=== PATIENT | female | born 1960 | race Caucasian/White ===

== ENCOUNTER 2018-05-12 07:44 | Day surgery (SDC) | payer OTHER ==
[2018-05-05 10:59] VITALS: BMI 36.8
[~2018-05-12 07:44] MED LIST: LIDOCAINE 1% 20 ML VIAL (10MG/ML) FOR IV START INTRADERMA PRN; MIDAZOLAM (PF) 2 MG/2 ML VIAL IV PRN
[2018-05-12 08:09] VITALS: RESP 16; TEMP 99.1
[2018-05-12] MEDS: LACTATED RINGERS 1,000 ML IV SCH ×2 (08:17→08:41)
[2018-05-12] MEDS ORDERED: PROPOFOL 10 MG/ML 20 ML VIAL IV ONE (08:43)
[2018-05-12] MEDS ORDERED: LIDOCAINE 1% INJ 10MG/ML (20 ML MDV) ONE (08:43)
[2018-05-12 09:09] VITALS: PULSE 84
--- NOTE | 2018-05-12 09:12 | P.PCN ---
Date of Procedure: 05/12/18 Description of Procedure: BRIEF HISTORY: Patient is a 57-year-old, pleasant, female patient with a long-standing history of GERD on daily omeprazole therapy who presents for evaluation of epigastric abdominal pain. The patient reports almost daily epigastric pain, exacerbated by not eating or overeating. She does report Motrin use approximately 3 times per week. She has had episodes of vomiting with the pain. No past history of peptic ulcer disease. No signs or symptoms of GI bleeding. PROCEDURE PERFORMED: Esophagogastroduodenoscopy with biopsy. PREOPERATIVE DIAGNOSIS: Epigastric abdominal pain, GERD. ESTIMATED BLOOD LOSS: Minimal. IV sedation per anesthesia. PROCEDURE: After informed consent was obtained, the patient was brought into the endoscopy unit. IV sedation was administered by Anesthesia under continuous monitoring. Initially the Olympus GIF-190 video endoscope was inserted into the mouth. Esophagus intubated without any difficulty. It was gradually advanced into the stomach and duodenum and carefully examined. The bulb and the second part of the duodenum appeared normal. The scope at this time was withdrawn to the stomach, adequately insufflated with air, and upon careful examination, mucosa of the antrum, body, cardia and the fundus appeared grossly normal. Mild scattered erythema was noted in the antrum and body of the stomach with biopsies taken. A large hiatal hernia sac, from the GE junction at 33 cm to the diaphragmatic impingement at 39 cm was noted. 2 non bleeding superficial ulcerations in the hiatal hernia sac suggestive of Bucky's erosions were noted and biopsied. The GE junction was located at 33 cm from the incisors. The esophagus appeared normal. There were no erosions or ulcerations seen and the patient tolerated the procedure well. IMPRESSION: 1. Gastritis in the antrum and body, biopsied. 2. Superficial nonbleeding gastric ulcers in the hiatal hernia sac, biopsied. 3. Large hiatal hernia. RECOMMENDATIONS: The findings of this examination were discussed with the patient and her sister- in-law. Would recommend stopping NSAID use. Increase omeprazole therapy to twice daily. Avoid tobacco use. Await pathology from biopsies. Follow up with gastroenterology in one to 2 weeks.
[2018-05-12 09:25] VITALS: BP 112/79
== END 2018-05-12 09:48 | disposition home or self-care (01) ==
LOC: ORWHC2ENDO 07:44
PROVIDERS: ATTEND Internal Medicine
DX: K21.9 Gastro-esophageal reflux disease without esophagitis (principal); K29.50 Unspecified chronic gastritis without bleeding; K44.9 Diaphragmatic hernia without obstruction or gangrene; Z87.891 Personal history of nicotine dependence; Z79.1 Long term (current) use of non-steroidal anti-inflammatories (NSAID); Z79.52 Long term (current) use of systemic steroids; Z79.899 Other long term (current) drug therapy; Z88.2 Allergy status to sulfonamides
CPT/HCPCS: 88305; 43239; J2001; J2704

== ENCOUNTER → 2018-08-17 | Outpatient (CLI) | payer OTHER ==
--- NOTE | 2018-08-17 12:42 | CT ---
EXAMINATION TYPE: CT abdomen pelvis wo con DATE OF EXAM: 08/17/2018 HISTORY: Abdominal pain not further specified. CT DLP: 896.00 mGycm. Automated Exposure Control for Dose Reduction was Utilized. TECHNIQUE: CT scan of the abdomen and pelvis is performed without oral or IV contrast. COMPARISON: NONE FINDINGS: Within the limitations of a non-contrast study, the following observations are made. LUNG BASES: Dependent atelectasis in both bases is present. LIVER/GB: Cholecystectomy clips are noted. PANCREAS: No significant abnormality is seen. SPLEEN: No significant abnormality is seen. ADRENALS: No significant abnormality is seen. KIDNEYS: No renal calculi or hydronephrosis. BOWEL: Evaluation bowel is slightly suboptimal secondary to lack of enteric contrast. There is modera te to large size hiatal hernia with abnormal twisting of stomach and air debris level. No suspicious proximal dilatation of visualized esophagus is seen. Below diaphragm there is no suspicious small or large bowel dilatation. Normal-appearing appendix from base of cecum is identified. There are scatter ed colonic diverticula most prominent in the sigmoid colon. No CT evidence for acute diverticulitis. GENITAL ORGANS: Anteverted uterus is identified. Scattered pelvic phleboliths are seen. No suspicious adnexal lesions are identified. LYMPH NODES: No greater than 1cm abdominal or pelvic lymph nodes are appreciated. OSSEOUS STRUCTURES: Mild disc space narrowing L5-S1 level. OTHER: Mild calcified plaque of aorta extends into branch vessels. IMPRESSION: Moderate to large size fixed hiatal hernia with twisting is presumed chronic. No acute fi nding is seen to account for patient's symptoms of pain. No bowel obstruction is present.
== END ==
LOC: RADCTMAIN 11:25
PROVIDERS: ATTEND Family Medicine
DX: K44.9 Diaphragmatic hernia without obstruction or gangrene (principal)
CPT/HCPCS: 74176

== ENCOUNTER → 2018-11-21 | Outpatient (CLI) | payer OTHER ==
[2018-11-21 11:05] LABS: HCT 38.7 % (34.0-46.0); HGB 12.6 gm/dL (11.4-16.0); MCH 28.2 pg (25.0-35.0); MCHC 32.5 g/dL (31.0-37.0); MCV 86.8 fL (80.0-100.0); Platelet Count 332 k/uL (150-450); RBC 4.46 m/uL (3.80-5.40); WBC 8.9 k/uL (3.8-10.6)
[2018-11-21 11:22] LABS: INR 0.9 (<1.2); Partial Thromboplastin Time 24.2 sec (22.0-30.0); Prothrombin Time 9.7 sec (9.0-12.0)
[2018-11-21 16:08] LABS: African American GFR (CKD) 92.9 (60.0-200.0); Albumin 4.4 g/dL (3.80-4.90); Albumin/Globulin Ratio 2.2 (1.60-3.17); Anion Gap 6.4 mmol/L (4.00-12.00); BUN/Creat Ratio 26.25 Ratio (12.00-20.00); Calcium 9.6 mg/dL (8.7-10.3); Carbon Dioxide 24.6 mmol/L (21.6-31.8); LDL Cholesterol,Calculated 76.2 mg/dL (0.0-131.0); Magnesium 1.6 mg/dL (1.5-2.4); Phosphorus 3.6 mg/dL (2.4-5.1); Potassium 4.2 mmol/L (3.5-5.5); Total Bilirubin 0.3 mg/dL (0.3-1.2); Total Protein 6.4 g/dL (6.2-8.2); VLDL Calculation 33.8 mg/dL (5.00-40.00)
[2018-11-21 16:10] LABS: Iron Saturation 23.46 (12.00-45.00)
[2018-11-21 16:18] LABS: Vitamin D 25 Hydroxy 57.9 ng/mL (30.0-100.0)
[2018-11-21 16:25] LABS: Folate, Serum 14.6 ng/mL
[2018-11-21 16:43] LABS: Parathyroid Hormone Intact 50.3 pg/mL (14.0-72.0)
[2018-11-21 18:38] LABS: Hemoglobin A1C 5.9 % (4.0-6.0)
[2018-11-22 11:00] LABS: Zinc, Serum 67 ug/dL (60-130)
[2018-11-23 07:28] LABS: Vitamin A 74 ug/dL (38-106)
[2018-11-23 07:32] LABS: Vit B1(Thiamine) 61 ug/L (38-122)
== END | disposition home or self-care (01) ==
LOC: LABWHC1 10:37
PROVIDERS: ATTEND Surgery Plastic and Reconstructive Surgery
DX: E66.01 Morbid (severe) obesity due to excess calories (principal); E21.1 Secondary hyperparathyroidism, not elsewhere classified; D50.8 Other iron deficiency anemias; K90.89 Other intestinal malabsorption; K74.1 Hepatic sclerosis; N19 Unspecified kidney failure; K50.90 Crohn's disease, unspecified, without complications; E55.9 Vitamin D deficiency, unspecified
CPT/HCPCS: 36415; 80053; 80061; 82306; 82525; 82607; 82728; 82746; 83036; 83540; 83550; 83735; 83970; 84100; 84134; 84255; 84425; 84443; 84590; 84630; 85027; 85610; 85730

== ENCOUNTER 2018-11-24 07:04 | Day surgery (SDC) | payer OTHER ==
[2018-11-22 10:46] VITALS: BMI 37.0
--- NOTE | 2018-11-23 22:39 | P.GSHP ---
History of Present Illness H&P Date: 11/24/18 CHIEF COMPLAINT: GERD HISTORY OF PRESENT ILLNESS: The patient is a 58-year-old female who presents reports gastroesophageal reflux disease. Upper endoscopy was offered for further evaluation and management. PAST MEDICAL HISTORY: Please see list. PAST SURGICAL HISTORY: Please see list. MEDICATIONS: Please see list. ALLERGIES: Please see list. SOCIAL HISTORY: No illicit drug use FAMILY HISTORY: No reports of Crohn disease or ulcerative colitis. REVIEW OF ORGAN SYSTEMS: CONSTITUTIONAL: No reports of fevers or chills. GI: Denies any blood in stools or constipation. PHYSICAL EXAM: VITAL SIGNS: Stable GENERAL: Well-developed and pleasant in no acute distress. HEENT: No scleral icterus. Extraocular movements grossly intact. Moist buccal mucosa. NECK: Supple without lymphadenopathy. CHEST: Unlabored respirations. Equal bilateral excursions. CARDIOVASCULAR: Regular rate and rhythm. Distal 2+ pulses. ABDOMEN: Soft, nondistended. MUSCULOSKELETAL: No clubbing, cyanosis, or edema. ASSESSMENT: 1. Gastroesophageal reflux disease PLAN: 1. 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 Hepatitis A 1979, had hx of gestational hypertension, ulcer, wears a pessary for urinary leakage, hx fragile X syndrome History of Any Multi-Drug Resistant Organisms: None Reported Past Surgical History: Cholecystectomy Additional Past Surgical History / Comment(s): EGD/colonoscopies Past Anesthesia/Blood Transfusion Reactions: No Reported Reaction Smoking Status: Former smoker - Past Family History Mother Family Medical History: Cancer Additional Family Medical History / Comment(s): breast Medications and Allergies Home Medications Medication Instructions Recorded Confirmed Type Omeprazole 40 mg PO BID 05/05/18 11/22/18 History Acetaminophen/Diphenhydramine 2 each PO DIRECTED PRN 11/22/18 11/22/18 History [Tylenol PM Extra Strength] Atorvastatin [Lipitor] 20 mg PO DAILY 11/22/18 11/22/18 History Allergies Allergy/AdvReac Type Severity Reaction Status Date / Time good Allergy Anaphylaxis Verified 11/22/18 10:32 sulfamethoxazole Allergy Rash/Hives Verified 11/22/18 10:32 [From Bactrim] trimethoprim [From Bactrim] Allergy Rash/Hives Verified 11/22/18 10:32
[~2018-11-24 07:04] MED LIST changes: +LACTATED RINGERS 1,000 ML IV SCH; -MIDAZOLAM (PF) 2 MG/2 ML VIAL IV PRN
[2018-11-24 07:22] VITALS: TEMP 97.2
[2018-11-24] MEDS ORDERED: GLYCOPYRROLATE 0.2 MG/ML 2 ML VIAL ONE (07:54)
[2018-11-24] MEDS ORDERED: LIDOCAINE 1% INJ 10MG/ML (20 ML MDV) ONE (07:54)
[2018-11-24] MEDS ORDERED: PROPOFOL 10 MG/ML 20 ML VIAL IV ONE (07:54)
--- NOTE | 2018-11-24 08:19 | P.PCN ---
Date of Procedure: 11/24/18 Description of Procedure: PREOPERATIVE DIAGNOSIS: Gastroesophageal reflux disease. Hiatal hernia Morbid obesity POSTOPERATIVE DIAGNOSIS: Morbid obesity. Gastritis. Duodenitis Gastroesophageal reflux disease. Diaphragmatic hiatal hernia OPERATION: Esophagogastroduodenoscopy with biopsies along antrum and duodenum SURGEON: Mercedez Patel MD ANESTHESIA: MAC. INDICATIONS: The patient is a 58-year-old female who presents with a history of reflux disease. Benefits and risks of the procedure were described. Informed consent was obtained. DESCRIPTION: The patient was brought into the endoscopy suite and laid in the left lateral decubitus position. An Olympus gastroscope was passed along the posterior oropharynx down to the distal esophagus where the squamocolumnar junction was encountered at 34 cm from the incisors. The stomach was entered and no bile reflux was found. Additional findings are listed below. Biopsies with cold forceps were obtained of the antrum. The first through third portion of the duodenum was examined and remarkable for duodenitis. Retroflexion of the scope confirmed Hill grade 4 lower esophageal valve. The squamocolumnar junction demonstrated LA grade A erosive esophagitis. The stomach was desufflated. The patient tolerated the procedure well. FINDINGS: Squamocolumnar junction 34 cm from the incisors. Diaphragmatic hiatus at 38 cm. Hiatal hernia, 4 cm, paraesophageal type III Hill grade 4 lower esophageal valve. LA grade A erosive esophagitis. Active duodenitis with cold biopsies obtained Chronic gastritis with cold biopsies obtained RECOMMENDATIONS: Upper endoscopy as needed. As she is symptomatic, recommend repair of large paraesophageal hiatal hernia Plan - Discharge Summary Discharge Rx Participant: No New Discharge Prescriptions: No Action Omeprazole 40 mg PO BID Atorvastatin [Lipitor] 20 mg PO DAILY Acetaminophen/Diphenhydramine [Tylenol PM Extra Strength] 2 each PO DIRECTED PRN PRN Reason: Pain Discharge Medication List Omeprazole 40 mg PO BID 05/05/18 [History] Acetaminophen/Diphenhydramine [Tylenol PM Extra Strength] 2 each PO DIRECTED PRN 11/22/18 [History] Atorvastatin [Lipitor] 20 mg PO DAILY 11/22/18 [History] Follow up Appointment(s)/Referral(s): Mercedez Patel MD [STAFF PHYSICIAN] - 12/27/18 Patient Instructions/Handouts: Hiatal Hernia (DC), Duodenitis (DC) Activity/Diet/Wound Care/Special Instructions: Will need manometry for assessment of esophagus Discharge Disposition: HOME SELF-CARE
[2018-11-24 08:20] VITALS: RESP 16
[2018-11-24 08:49] VITALS: BP 122/92; PULSE 72
== END 2018-11-24 09:23 | disposition home or self-care (01) ==
LOC: ORWHC2ENDO 07:04
PROVIDERS: ATTEND Surgery Plastic and Reconstructive Surgery
DX: K21.0 Gastro-esophageal reflux disease with esophagitis (principal); K29.50 Unspecified chronic gastritis without bleeding; K29.80 Duodenitis without bleeding; K44.9 Diaphragmatic hernia without obstruction or gangrene; E66.01 Morbid (severe) obesity due to excess calories; Z68.36 Body mass index [BMI] 36.0-36.9, adult; I25.10 Atherosclerotic heart disease of native coronary artery without angina pectoris; Z90.49 Acquired absence of other specified parts of digestive tract; Z88.2 Allergy status to sulfonamides; Z91.018 Allergy to other foods; Z79.899 Other long term (current) drug therapy; B15.9 Hepatitis A without hepatic coma
CPT/HCPCS: 88305; 43239; J2001; J2704

== ENCOUNTER → 2018-12-15 | Outpatient (CLI) | payer OTHER | END | disposition home or self-care (01) | CPT/HCPCS: 94060; 94726; 94729 ==

== ENCOUNTER 2019-01-27 11:00 | Inpatient (IN) | payer OTHER ==
--- NOTE | 2019-01-27 09:31 | P.GSHP ---
History of Present Illness H&P Date: 01/27/19 CHIEF COMPLAINT: Paraesophageal hiatal hernia with gastroesophageal reflux disease. HISTORY OF PRESENT ILLNESS: The patient is a 58-year-old female who presents with paraesophageal hiatal hernia. She has completed an esophageal manometry including upper endoscopy workup. Now she presents for surgical intervention. PAST MEDICAL HISTORY: Please see list. PAST SURGICAL HISTORY: Please see list. MEDICATIONS: Please see list. ALLERGIES: Please see list. SOCIAL HISTORY: No illicit drug use FAMILY HISTORY: No reports of Crohn disease or ulcerative colitis. REVIEW OF ORGAN SYSTEMS: CONSTITUTIONAL: No reports of fevers or chills. GI: Denies any blood in stools or constipation. PHYSICAL EXAM: VITAL SIGNS: Stable GENERAL: Well-developed pleasant and in no acute distress. HEENT: No scleral icterus. Extraocular movements grossly intact. Moist buccal mucosa. NECK: Supple without lymphadenopathy. CHEST: Unlabored respirations. Equal bilateral excursions. CARDIOVASCULAR: Regular rate and rhythm. Distal 2+ pulses. ABDOMEN: Soft, nondistended. No peritoneal signs. MUSCULOSKELETAL: No clubbing, cyanosis, or edema. SKIN: Well-perfused. Good skin turgor. MANOMETRY: Shows no evidence of achalasia or scleroderma. ASSESSMENT: 1. Diaphragmatic paraesophageal hiatal hernia with severe gastroesophageal reflux disease. PLAN: 1. Recommend proceeding with a robotic paraesophageal hiatal hernia with possible mesh. 2. Benefits and risks of surgical intervention was discussed including possibility of open technique. 3. Inpatient hospitalization recommended of 2 nights 4. DVT prophylaxis. 5. Antibiotic prophylaxis. 6. She has also completed a very low caloric high-protein diet to address underlying hepatomegaly. Past Medical History Past Medical History: GERD/Reflux, Hyperlipidemia, Liver Disease Additional Past Medical History / Comment(s): Hepatitis A years ago. Hiatal hernia, very painful. History of Any Multi-Drug Resistant Organisms: None Reported Past Surgical History: Cholecystectomy Additional Past Surgical History / Comment(s): EGD/Colonoscopies Past Anesthesia/Blood Transfusion Reactions: No Reported Reaction Smoking Status: Current some day smoker - Past Family History Mother Family Medical History: Cancer Additional Family Medical History / Comment(s): breast Medications and Allergies Home Medications Medication Instructions Recorded Confirmed Type Omeprazole 40 mg PO BID 05/05/18 01/19/19 History Atorvastatin [Lipitor] 20 mg PO DAILY 11/22/18 01/19/19 History Acetaminophen [Tylenol Extra 500 - 1,000 mg PO Q6H PRN 01/19/19 01/19/19 History Strength] Cholecalciferol [Vitamin D3 (25 1,000 unit PO DAILY 01/19/19 01/19/19 History Mcg = 1000 Iu)] HYDROcodone/APAP 5-325MG [[place] 1 tab PO Q8H PRN 01/19/19 01/19/19 History 5-325] Mv-Min/Vit C/Glut/Lysine/Hb124 2 each PO DAILY 01/19/19 01/19/19 History [Airborne Effervescent Tablet] Allergies Allergy/AdvReac Type Severity Reaction Status Date / Time good Allergy Anaphylaxis Verified 01/19/19 14:27 sulfamethoxazole Allergy Rash/Hives Verified 01/19/19 14:27 [From Bactrim] trimethoprim [From Bactrim] Allergy Rash/Hives Verified 01/19/19 14:27
[~2019-01-27 11:00] MED LIST changes: +CHLORHEXIDINE GLUCONATE 15 ML CUP MUCOUS MEM ONE; +DEXAMETHASONE SOD PHOSPHATE 10 MG/ML 1 ML VIAL IV ONE; +ENOXAPARIN 40 MG/0.4 ML SYRINGE SQ STA; +HEPARIN SODIUM,PORCINE 5,000 UNIT/ML 1 ML VIAL SQ ONE; +HYDROmorphone 0.5 MG/0.5 ML SYRINGE IVP PRN; -LACTATED RINGERS 1,000 ML IV SCH; +ONDANSETRON 4 MG/2 ML VIAL IVP ONE; +PANTOPRAZOLE 40 MG/10 ML VIAL IV STA
[2019-01-27] MEDS: LACTATED RINGERS 1,000 ML IV SCH (13:56)
[2019-01-27 14:06] LABS: Basophils # (A) 0.1 k/uL (0-0.2); Basophils % (A) 1 %; Eosinophils # (A) 0.1 k/uL (0-0.7); Eosinophils % (A) 1 %; HGB 13.7 gm/dL (11.4-16.0); Lymphocytes # (A) 2.4 k/uL (1.0-4.8); Lymphocytes % (A) 22 %; MCH 29.2 pg (25.0-35.0); MCHC 34.1 g/dL (31.0-37.0); MCV 85.5 fL (80.0-100.0); Mean Platelet Volume 8.2; Monocytes # (A) 0.5 k/uL (0-1.0); Monocytes % (A) 5 %; Neutrophils # (A) 7.5 k/uL (1.3-7.7); Neutrophils % (A) 70 %; Platelet Count 329 k/uL (150-450); RBC 4.68 m/uL (3.80-5.40); RDW 15.5 % (11.5-15.5); WBC 10.7 k/uL (3.8-10.6)
[2019-01-27] MEDS ORDERED: MIDAZOLAM (PF) 2 MG/2 ML VIAL IVP ONE (14:51)
[2019-01-27] MEDS ORDERED: LIDOCAINE 1% INJ 10MG/ML (20 ML MDV) ONE (15:50)
[2019-01-27] MEDS ORDERED: MIDAZOLAM 2 MG/2 ML VIAL ONE (15:50)
[2019-01-27] MEDS ORDERED: HYDROmorphone (PF) 1 MG/ML ONE (15:50)
[2019-01-27] MEDS ORDERED: BUPIVACAINE-EPI 0.5%-1:200,000 10 ML VIAL ONE (15:50)
[2019-01-27] MEDS ORDERED: NEOSTIGMINE 1 MG/ML 10 ML VIAL ONE (15:50)
[2019-01-27] MEDS ORDERED: PROPOFOL 10 MG/ML 20 ML VIAL IV ONE (15:50)
[2019-01-27] MEDS ORDERED: ROCURONIUM BROMIDE 10 MG/ML 10 ML VIAL IV ONE (15:50)
[2019-01-27] MEDS ORDERED: fentaNYL (PF) 50 MCG/ML 2 ML AMP ONE (15:50)
[2019-01-27] MEDS ORDERED: KETAMINE 10 MG/ML 20 ML VIAL ONE (15:50)
[2019-01-27] MEDS ORDERED: GLYCOPYRROLATE 0.2 MG/ML 2 ML VIAL ONE (15:50)
--- NOTE | 2019-01-27 16:11 | P.ANPRN ---
Procedure Note - Anesthesia - Nerve Block Performed Bilateral Transversus Abdominis Single Time Out Performed: Yes Date of Procedure: 01/27/19 Procedure Start Time: 14:51 Procedure Stop Time: 14:59 Location of Patient Procedure: PreOp Indication: Acute Post-Operative Pain, Analgesia, Requested by Surgeon Sedation Type: Sedate with meaningful contact maintained Preparation: Sterile Prep Position: Supine Catheter: None Needle Types: Pajunk Needle Gauge: 21 Ultrasound used to visualize needle placement: Yes Ultrasound used to observe medication spread: Yes Injectate: Other (see comment) (0.5% bupivacaine with 1:200k epi, 15cc each side) Blood Aspirated: No Pain Paresthesia on Injection Noted: No Resistance on Injection: Normal Image Stored and Saved: Yes Events: Uneventful and Well Tolerated
[2019-01-27] MEDS ORDERED: LACTATED RINGERS 1,000 ML IV ONE ×3 (16:18→18:35)
[2019-01-27] MEDS ORDERED: LIDOCAINE 1%-EPI 1:100,000 20 ML VIAL SUBMUCOSAL ONE (16:19)
[2019-01-27] MEDS ORDERED: diphenhydrAMINE 50 MG/ML 1 ML VIAL IVP PRN (19:04)
[2019-01-27] MEDS ORDERED: ACETAMINOPHEN IV (For NPO) 1,000 MG in EMPTY BAG 1 BAG IVPB ONE (19:04)
[2019-01-27] MEDS ORDERED: NALOXONE 0.4 MG/ML 1 ML VIAL IV PRN (19:04)
[2019-01-27] MEDS ORDERED: HYDROcodone/APAP 15 ML SOLUTION PO PRN (19:04)
--- NOTE | 2019-01-27 19:04 | P.OP ---
Date of Procedure: 01/27/19 Description of Procedure: SURGEON: ORALIA ESCOBAR MD PREOPERATIVE DIAGNOSES: 1. Symptomatic paraesophageal diaphragmatic hiatal hernia. 2. Gastroesophageal reflux disease. 3. Anxiety disorder 4. Depressive disorder 5. Past tobacco abuse 6. Morbid obesity due to excess calories, BMI 35.4 7. Esophagogastro-outlet obstruction, pre-existing POSTOPERATIVE DIAGNOSES: 1. Paraesophageal midline diaphragmatic hernia, 6 cm, with incarceration. 2. Gastroesophageal reflux disease. 3. Anxiety disorder 4. Depressive disorder 5. Past tobacco abuse 6. Morbid obesity due to excess calories, BMI 35.4 7. Esophagogastro-outlet obstruction, pre-existing OPERATION: 1. Robotic-assisted da Teodora Xi laparoscopic repair of incarcerated paraesophageal hiatal hernia, 9 x 6 cm, with Bledsoe Biopatch A 8 x 8 cm. 2. Intraoperative esophagogastroduodenoscopy 3. Distal esophageal dilation using the 56-Arabic bougie for esophagogastro- outlet obstruction, pre-existing ANESTHESIA: General with local anesthetic. ESTIMATED BLOOD LOSS: 5 mL SPECIMENS REMOVED: None COMPLICATIONS: None. Condition: stable Disposition: floor FINDINGS: 1. Midline incarcerated paraesophageal hiatal hernia 9 x 6 cm with involvement of over 60% stomach within the mediastinum 2. Intraoperative upper endoscopy confirms complete closure of hiatal hernia from Hill grade 4 to Hill grade 1 INDICATIONS: The patient is a 58-year-old female who presents with regurgitation, gastroesophageal reflux disease poorly controlled despite medications, and a symptomatic diaphragmatic hiatal hernia. Tobacco cessation was maintained. Preoperative workup including upper endoscopy demonstrated a Hill grade 4 lower esophageal valve. She completed an esophageal manometry demonstrating esophagogastric outlet obstruction. Given the severity of symptoms, she had elected for surgical intervention. Benefits and risks including bleeding, infection, recurrence, dysphagia, injury to the lung, need for further surgery was described at length. Informed consent was obtained. DESCRIPTION: The patient was brought into the operating room and placed in supine position. Preoperatively she had received heparin subcutaneously for DVT prophylaxis. After general induction, the abdomen was prepped and draped in standard sterile fashion. The patient had previously voided prior to coming to the operating room. [place] draping was placed along the abdomen. A timeout protocol was confirmed with the surgical team, for which the patient's name, procedure to be performed including DVT prophylaxis with bilateral SCDs, and preoperative antibiotics were also confirmed. A robotic da Teodora Xi system was prepped and primed. At 12 cm from the xiphoid to just below the umbilicus, proposed port sites were marked with indelible marker along the left axillary line, left mid-clavicular line with each ports were marked 10 cm from each other. A 5 mm 0 degrees laparoscopic trocar entry was performed along the left upper quadrant. The abdomen was insufflated to 15 mmHg pressure was tolerated well. Diagnostic laparoscopy demonstrated no injury to bowel, viscera, or mesentery. No injury had occurred to the small bowel or viscera. Next, one 8 mm robotic port was placed along the right upper abdomen. An 8-mm port was were placed along the left lateral abdominal wall. The camera 8-mm port was maintained along the epigastrium via the hernia defect. Another 12 mm port was placed along the left upper abdominal wall after exchanging the 5 mm port. Please note that the ports were placed at least 20 cm away from the target anatomy. Care was taken to check that each robotic arm were safely away from collision with the bed or the patient. At the epigastrium, a medium sized Angela liver retractor was placed under direct visualization with the Iron Shipping Coordinator placed under the right shoulder of the patient. All robotic arms were used. The patient was repositioned in reverse Trendelenburg position at 16-degrees after lowering the bed. The robot was docked above the right side of the patient. Using a grasper for arm 3, a grasper for arm 1, including vessel sealer for arm 2, the robotic system was docked and primed as described. Instruments were interchanged by the cafe assistant. I had sat at the console. Extremely large hernia defect was identified anterior to the stomach. Over 60% stomach was incarcerated into the mediastinum. Initial dissection was performed along the hiatus for release of the hernia sac. The gastrohepatic ligament was cleaved using a vessel sealer. Next, the phrenoesophageal ligament was mobilized and the distal esophagus was mobilized circumferentially. The left and right cru ra was identified. Circumferentially, the hernia sac was excised and brought into the peritoneal cavity. Moderate dissection into the mediastinum was performed to release the esophagus into the abdominal cavity. Moderate posterior gastric adhesions including along the gastrohepatic ligament was found and reduced of a mediastinal lipoma involving the hernia sac. Hernia sac was reduced into the peritoneal cavity after extensive dissection. The measured defect was consistent with 9 cm axial length and 6 cm in width. After dissection, the distal esophagus of 3 cm was brought into the abdominal cavity. Once the hiatus and crura was dissected, 2-0 VLOC suture was placed to reapproximate the diaphragmatic hiatus posteriorly. To reinforce the suture repair, 0-Surgidac was used. To buttress the repair, a Bledsoe Biopatch A was prepared along the back table and cut in half of a low-hole fashion as to reinforce the repair as an underlay. The mesh was placed along the crural repair and tagged using horizontal mattress sutures using 2-0 VLOC. I went to the head of the bed to perform intraoperative esophagogastroduodenoscopy and placement of a 56Fr bougie to address esophagogastric outlet obstruction per her manometry studies. An Olympus gastroscope was passed through posterior oropharynx. Retroflexion of the scope confirmed a Hill grade 1 lower esophageal valve. The stomach had been desufflated. No evidence of leaks were found of the esophagus or stomach. The squamocolumnar junction was intra-abdominal with at least 3 cm of distal esophagus in the abdomen. The GI tract with desufflated This concluded the endoscopic portion of the case. The robot was undocked from the patient. I re-scrubbed into the case. All instruments and pneumoperitoneum and specimens were evacuated from the abdominal cavity. Incisions were reapproximated using 4-0 Monocryl in an interrupted subcuticular fashion. Liquid glue was applied to the skin. Local anesthetic was infiltrated in all wounds for postop analgesia. Multiple intra-abdominal films were obtained. At the end of the procedure, needle, sponge, and instrument count was verified correct by the regional vice president surgical sales. The patient had tolerated the procedure well and was taken to the postanesthesia unit in stable condition. Intraoperative films were reviewed with the patient's family who was pleased with the level of care. Console time 107 minutes.
[2019-01-27] MEDS ORDERED: HYDROmorphone 1 MG/ML 1 ML SYRINGE IVP PRN (19:08)
[2019-01-27] MEDS: ALBUTEROL NEBULIZED 2.5 MG/3 ML INHALATION SCH (19:14)
[2019-01-27] MEDS: 0.9% NACL WITH KCL 20 MEQ/L 1,000 ML IV SCH (20:49)
[2019-01-27] MEDS: SIMETHICONE 40 MG/0.6 ML DROPS 2,000 MG/30 ML BOTTLE PO SCH (20:49)
[2019-01-28] MEDS: HYOSCYAMINE ORAL DROPS 1.875 MG/15 ML BOTTLE PO SCH ×2 (00:06→06:06)
[2019-01-28] MEDS: SIMETHICONE 40 MG/0.6 ML DROPS 2,000 MG/30 ML BOTTLE PO SCH ×2 (00:06→06:06)
[2019-01-28] MEDS: KETOROLAC 30 MG/ML 1 ML VIAL IVP SCH ×3 (00:07→12:00)
[2019-01-28] MEDS: DEXAMETHASONE SOD PHOSPHATE 4 MG/ML 1 ML VIAL IV SCH ×3 (00:07→11:59)
[2019-01-28] MEDS: METOCLOPRAMIDE 5 MG/ML 2 ML VIAL IVP SCH ×3 (00:07→11:59)
[2019-01-28] MEDS: 0.9% NACL WITH KCL 20 MEQ/L 1,000 ML IV SCH (03:31)
[2019-01-28 04:56] VITALS: TEMP 98.4
[2019-01-28 07:14] VITALS: BP 126/72; RESP 14
[2019-01-28 07:59] LABS: African American GFR (CKD) >90 (>60 ml/min/1.73 sqM); Anion Gap 10 mmol/L; Blood Urea Nitrogen 13 mg/dL (7-17); Calcium 8.6 mg/dL (8.4-10.2); Carbon Dioxide 21 mmol/L (22-30); Chloride 109 mmol/L (98-107); Magnesium 1.7 mg/dL (1.6-2.3); Phosphorus 3.1 mg/dL (2.5-4.5); Potassium 4.4 mmol/L (3.5-5.1); Sodium 140 mmol/L (137-145)
[2019-01-28] MEDS ORDERED: 0.9% NACL WITH KCL 20 MEQ/L 1,000 ML IV SCH (08:00)
[2019-01-28 08:06] LABS: Basophils % (A) 0 %; Eosinophils % (A) 0 %; HCT 34.5 % (34.0-46.0); HGB 11.4 gm/dL (11.4-16.0); Lymphocytes % (A) 10 %; MCHC 33.2 g/dL (31.0-37.0); MCV 87.6 fL (80.0-100.0); Mean Platelet Volume 8.4; Monocytes # (A) 0.2 k/uL (0-1.0); Monocytes % (A) 2 %; Neutrophils # (A) 8.3 k/uL (1.3-7.7); Neutrophils % (A) 87 %; Platelet Count 263 k/uL (150-450); RBC 3.94 m/uL (3.80-5.40); RDW 14.1 % (11.5-15.5); WBC 9.6 k/uL (3.8-10.6)
--- NOTE | 2019-01-28 08:43 | FL ---
EXAMINATION TYPE: FL esophagus cervic/pharynx DATE OF EXAM ORDERED: 01/28/2019 8:35 AM HISTORY: Status post Claude fundoplication. COMPARISON: None. FINDINGS: The patient drank contrast with ease. There is prompt egress of contrast from the esophagu s into the stomach. There is no evidence of extravasation. There is no significant free air. The liga ment of [place] is in the normal location. IMPRESSION: STATUS POST CLAUDE FUNDOPLICATION.
[2019-01-28] MEDS: ALBUTEROL NEBULIZED 2.5 MG/3 ML INHALATION SCH ×2 (08:44→11:50)
[2019-01-28] MEDS: LACTATED RINGERS 1,000 ML IV SCH (08:45)
[2019-01-28] MEDS ORDERED: PANTOPRAZOLE 40 MG/10 ML VIAL IV SCH (09:00)
[2019-01-28] MEDS ORDERED: ENOXAPARIN 40 MG/0.4 ML SYRINGE SQ SCH (09:00)
--- NOTE | 2019-01-28 10:47 | P.DS ---
Providers Date of admission: 01/27/19 12:59 Expected date of discharge: 01/28/19 Attending physician: Mercedez Patel Primary care physician: Steven Sanchez [facility] Course: Patient minute yesterday for elective hiatal hernia repair. Doing well at this time. Tolerating liquids. Upper GI shows no evidence of leak or obstruction. Patient is anxious to go home. We'll discharge today. Outpatient follow-up with Dr. Mares will be arranged. Plan - Discharge Summary Discharge Rx Participant: Yes New Discharge Prescriptions: New Bisacodyl [Dulcolax] 5 mg PO DAILY PRN #10 tablet. PRN Reason: Constipation Simethicone 40 mg/0.6 ml Drops [Mylicon Drops] 40 mg PO [facility]CHS PRN #30 ml PRN Reason: Gas Ondansetron Odt [Zofran Odt] 4 mg PO Q8HR PRN #9 tab PRN Reason: Nausea Continue Atorvastatin [Lipitor] 20 mg PO DAILY HYDROcodone/APAP 5-325MG [[place] 5-325] 1 tab PO Q8H PRN PRN Reason: Pain Control Acetaminophen [Tylenol Extra Strength] 500 - 1,000 mg PO Q6H PRN PRN Reason: Pain Discontinued Omeprazole 40 mg PO BID Cholecalciferol [Vitamin D3 (25 Mcg = 1000 Iu)] 1,000 unit PO DAILY Mv-Min/Vit C/Glut/Lysine/Hb124 [Airborne Effervescent Tablet] 2 each PO DAILY Discharge Medication List Atorvastatin [Lipitor] 20 mg PO DAILY 11/22/18 [History] Acetaminophen [Tylenol Extra Strength] 500 - 1,000 mg PO Q6H PRN 01/19/19 [History] HYDROcodone/APAP 5-325MG [[place] 5-325] 1 tab PO Q8H PRN 01/19/19 [History] Bisacodyl [Dulcolax] 5 mg PO DAILY PRN #10 tablet. 01/27/19 [Rx] Ondansetron Odt [Zofran Odt] 4 mg PO Q8HR PRN #9 tab 01/27/19 [Rx] Simethicone 40 mg/0.6 ml Drops [Mylicon Drops] 40 mg PO PCHS PRN #30 ml 01/27/19 [Rx] Follow up Appointment(s)/Referral(s): Mercedez Patel MD [STAFF PHYSICIAN] - 01/31/19 Patient Instructions/Handouts: Laparoscopic Hiatal Hernia Repair (DC) Activity/Diet/Wound Care/Special Instructions: Liquid diet only. No carbonated beverages. No straws. No lifting over 4 pounds in 4 weeks, February 26. May shower. No bath tub soaks until February 06. May take [id number] Tylenol or Aleve for pain. Do not remove scopolamine Discharge Disposition: HOME SELF-CARE
[2019-01-28 11:50] VITALS: BMI 35.3
[2019-01-28 12:04] VITALS: PULSE 86
== END 2019-01-28 13:46 | disposition home or self-care (01) | DRG 328 ==
LOC: EDSTATUS 11:00 → 2ORMAIN 12:59 → 4SSUR 18:59
PROVIDERS: ADMIT Surgery Plastic and Reconstructive Surgery; ATTEND Surgery Plastic and Reconstructive Surgery
PROC: 8E0W4CZ Robotic Assisted Procedure of Trunk Region, Percutaneous Endoscopic Approach (ICD-10-PCS; 2019-01-27)
PROC: 0DJ08ZZ Inspection of Upper Intestinal Tract, Via Natural or Artificial Opening Endoscopic (ICD-10-PCS; 2019-01-27)
PROC: 0BUT4JZ Supplement Diaphragm with Synthetic Substitute, Percutaneous Endoscopic Approach (ICD-10-PCS; principal; 2019-01-27 14:20)
DX: K44.0 Diaphragmatic hernia with obstruction, without gangrene (principal); E66.01 Morbid (severe) obesity due to excess calories; D17.9 Benign lipomatous neoplasm, unspecified; E78.5 Hyperlipidemia, unspecified; F32.9 Major depressive disorder, single episode, unspecified; F41.9 Anxiety disorder, unspecified; K21.9 Gastro-esophageal reflux disease without esophagitis; E78.00 Pure hypercholesterolemia, unspecified; F17.210 Nicotine dependence, cigarettes, uncomplicated; Z68.35 Body mass index [BMI] 35.0-35.9, adult; Z79.899 Other long term (current) drug therapy; Z88.1 Allergy status to other antibiotic agents; Z88.2 Allergy status to sulfonamides; Z91.018 Allergy to other foods; Z90.49 Acquired absence of other specified parts of digestive tract; Z82.49 Family history of ischemic heart disease and other diseases of the circulatory system; Z80.3 Family history of malignant neoplasm of breast
CPT/HCPCS: 64488; 74210; 80051; 82310; 82565; 83735; 84100; 84520; 85025; 94640; 94760; 94762

== ENCOUNTER → 2019-03-03 | Outpatient (CLI) | payer OTHER ==
--- NOTE | 2019-03-03 12:35 | FL ---
ESOPHOGRAM. HISTORY: Reflux in a patient is status post Erik fundoplication. Patient swallowed thin liquid barium without difficulty or delay. There are changes of prior Erik f undoplication. There appears to be a small recurrent hiatal hernia. No evidence for leak or obstructi on. No reflux seen during the course of the study. IMPRESSION: There appears to be a small recurrent hiatal hernia.
== END | disposition home or self-care (01) ==
LOC: RADUSWWP 08:48
PROVIDERS: ATTEND Surgery Plastic and Reconstructive Surgery
DX: R13.10 Dysphagia, unspecified (principal); K21.9 Gastro-esophageal reflux disease without esophagitis; Z88.2 Allergy status to sulfonamides
CPT/HCPCS: 74220

== ENCOUNTER → 2019-03-29 | Outpatient (CLI) | payer OTHER ==
--- NOTE | 2019-03-30 10:22 | MM ---
Reason for exam: screening (asymptomatic). Last mammogram was performed 2 years and 8 months ago. History: Patient is postmenopausal. Family history of breast cancer in mother at age 60. Physical Findings: A clinical breast exam by your physician is recommended on an annual basis and results should be correlated with mammographic findings. MG Screening Mammo w CAD Bilateral CC and MLO view(s) were taken. Prior study comparison: July 28, 2016, mammogram. March 08, 2015, mammogram. There are scattered fibroglandular densities. There is no discrete abnormality. No significant changes when compared with prior studies. ASSESSMENT: Negative, BI-RAD 1 RECOMMENDATION: Routine screening mammogram of both breasts in 1 year.
== END | disposition home or self-care (01) ==
LOC: RADMAMWWP 08:21
PROVIDERS: ATTEND Family Medicine
DX: Z12.31 Encounter for screening mammogram for malignant neoplasm of breast (principal)
CPT/HCPCS: 77067

== ENCOUNTER → 2019-05-18 | Outpatient (CLI) | payer OTHER ==
--- NOTE | 2019-05-18 11:02 | FL ---
EXAMINATION TYPE: FL barium swallow DATE OF EXAM: 05/18/2019 CLINICAL HISTORY: Status post Joao fundoplication and fall 2018. Recent tearing sensation with conc david for recurrent hernia. TECHNIQUE: A single contrast esophagram is performed utilizing thin barium only. A total of 1 minut e and 2 seconds of fluoroscopic time was utilized during procedure. 25 fluoroscopic images were saved . COMPARISON: None FINDINGS: The esophagus shows normal motility and emptying into the stomach. Large recurrent hiatal h ernia is seen. No evidence of extravasation. No significant gastroesophageal reflux was seen during r eal time performance of this study. IMPRESSION: Large recurrent hiatal hernia.
== END | disposition home or self-care (01) ==
LOC: RADUSWWP 09:49
PROVIDERS: ATTEND Surgery Plastic and Reconstructive Surgery
DX: K44.9 Diaphragmatic hernia without obstruction or gangrene (principal)
CPT/HCPCS: 74220

== ENCOUNTER 2019-06-01 09:05 | Day surgery (SDC) | payer OTHER ==
[2019-05-30 14:40] VITALS: BMI 34.8
--- NOTE | 2019-05-31 17:52 | P.GSHP ---
History of Present Illness H&P Date: 06/01/19 CHIEF COMPLAINT: GERD HISTORY OF PRESENT ILLNESS: The patient is a 58-year-old female who presents reports gastroesophageal reflux disease. Upper endoscopy was offered for further evaluation and management. PAST MEDICAL HISTORY: Please see list. PAST SURGICAL HISTORY: Please see list. MEDICATIONS: Please see list. ALLERGIES: Please see list. SOCIAL HISTORY: No illicit drug use FAMILY HISTORY: No reports of Crohn disease or ulcerative colitis. REVIEW OF ORGAN SYSTEMS: CONSTITUTIONAL: No reports of fevers or chills. GI: Denies any blood in stools or constipation. PHYSICAL EXAM: VITAL SIGNS: Stable GENERAL: Well-developed and pleasant in no acute distress. HEENT: No scleral icterus. Extraocular movements grossly intact. Moist buccal mucosa. NECK: Supple without lymphadenopathy. CHEST: Unlabored respirations. Equal bilateral excursions. CARDIOVASCULAR: Regular rate and rhythm. Distal 2+ pulses. ABDOMEN: Soft, nondistended. MUSCULOSKELETAL: No clubbing, cyanosis, or edema. ASSESSMENT: 1. Gastroesophageal reflux disease PLAN: 1. Recommend proceeding with an upper endoscopy Past Medical History Past Medical History: GERD/Reflux, Hyperlipidemia, Liver Disease Additional Past Medical History / Comment(s): Hepatitis A years ago. hx hiatal hernia History of Any Multi-Drug Resistant Organisms: None Reported Past Surgical History: Cholecystectomy, Hernia Repair Additional Past Surgical History / Comment(s): EGD/Colonoscopies. Lap Erik fundlaplasty Past Anesthesia/Blood Transfusion Reactions: No Reported Reaction Smoking Status: Former smoker - Past Family History Mother Family Medical History: Cancer Additional Family Medical History / Comment(s): breast Medications and Allergies Home Medications Medication Instructions Recorded Confirmed Type Atorvastatin [Lipitor] 20 mg PO DAILY 11/22/18 05/30/19 History Ascorbic Acid [Vitamin C] 500 mg PO DAILY 05/30/19 05/30/19 History Hydrocodone/Acetaminophen [[place] 1 tab PO BID 05/30/19 05/30/19 History 10-325] Multivitamins, Thera [Multivitamin 1 tab PO DAILY 05/30/19 05/30/19 History (formulary)] Omeprazole 40 mg PO DAILY 05/30/19 05/30/19 History Allergies Allergy/AdvReac Type Severity Reaction Status Date / Time good Allergy Anaphylaxis Verified 05/30/19 14:40 sulfamethoxazole Allergy Rash/Hives Verified 05/30/19 14:40 [From Bactrim] trimethoprim [From Bactrim] Allergy Rash/Hives Verified 05/30/19 14:40
[~2019-06-01 09:05] MED LIST changes: -CHLORHEXIDINE GLUCONATE 15 ML CUP MUCOUS MEM ONE; -DEXAMETHASONE SOD PHOSPHATE 10 MG/ML 1 ML VIAL IV ONE; -ENOXAPARIN 40 MG/0.4 ML SYRINGE SQ STA; -HEPARIN SODIUM,PORCINE 5,000 UNIT/ML 1 ML VIAL SQ ONE; -HYDROmorphone 0.5 MG/0.5 ML SYRINGE IVP PRN; +LACTATED RINGERS 1,000 ML IV SCH; -ONDANSETRON 4 MG/2 ML VIAL IVP ONE; -PANTOPRAZOLE 40 MG/10 ML VIAL IV STA
[2019-06-01 09:32] VITALS: TEMP 98.2
[2019-06-01] MEDS ORDERED: PROPOFOL 10 MG/ML 20 ML VIAL IV ONE (10:18)
[2019-06-01] MEDS ORDERED: LIDOCAINE 1% INJ 10MG/ML (20 ML MDV) ONE (10:18)
--- NOTE | 2019-06-01 10:36 | P.PCN ---
Date of Procedure: 06/01/19 Description of Procedure: PREOPERATIVE DIAGNOSIS: Gastroesophageal reflux disease. Morbid obesity. POSTOPERATIVE DIAGNOSIS: Morbid obesity. Gastritis. Gastroesophageal reflux disease. Diaphragmatic hiatal hernia, recurrent OPERATION: Esophagogastroduodenoscopy with biopsies along antrum. SURGEON: Mercedez Patel MD ANESTHESIA: MAC. INDICATIONS: The patient is a 58-year-old female who presents with a history of reflux disease. Benefits and risks of the procedure were described. Informed consent was obtained. DESCRIPTION: The patient was brought into the endoscopy suite and laid in the left lateral decubitus position. An Olympus gastroscope was passed along the posterior oropharynx down to the distal esophagus where the squamocolumnar junction was encountered at 33 cm from the incisors. The stomach was entered and no bile reflux was found. Additional findings are listed below. Biopsies with cold forceps were obtained of the antrum. The first through third portion of the duodenum was examined and unremarkable. Retroflexion of the scope confirmed Hill grade 4 lower esophageal valve. The squamocolumnar junction demonstrated LA grade B erosive esophagitis. The stomach was desufflated. The patient tolerated the procedure well. FINDINGS: Squamocolumnar junction 33 cm from the incisors. Diaphragmatic hiatus at 36 cm. Hiatal hernia, 3 cm, recurrent paraesophageal hiatal hernia Hill grade 4 lower esophageal valve. LA grade B erosive esophagitis. No active duodenitis. Chronic gastritis RECOMMENDATIONS: Upper endoscopy as needed. Plan - Discharge Summary Discharge Rx Participant: Yes New Discharge Prescriptions: No Action Atorvastatin [Lipitor] 20 mg PO DAILY Omeprazole 40 mg PO DAILY Multivitamins, Thera [Multivitamin (formulary)] 1 tab PO DAILY Ascorbic Acid [Vitamin C] 500 mg PO DAILY Hydrocodone/Acetaminophen [[place] 10-325] 1 tab PO BID Discharge Medication List Atorvastatin [Lipitor] 20 mg PO DAILY 11/22/18 [History] Ascorbic Acid [Vitamin C] 500 mg PO DAILY 05/30/19 [History] Hydrocodone/Acetaminophen [[place] 10-325] 1 tab PO BID 05/30/19 [History] Multivitamins, Thera [Multivitamin (formulary)] 1 tab PO DAILY 05/30/19 [History] Omeprazole 40 mg PO DAILY 05/30/19 [History] Follow up Appointment(s)/Referral(s): Mercedez Patel MD [STAFF PHYSICIAN] - 06/06/19 Patient Instructions/Handouts: Hiatal Hernia (DC) Discharge Disposition: HOME SELF-CARE
[2019-06-01] MEDS ORDERED: LACTATED RINGERS 1,000 ML IV ONE (10:38)
[2019-06-01 10:42] VITALS: RESP 16
[2019-06-01 10:54] VITALS: BP 131/85; PULSE 76
== END 2019-06-01 11:10 | disposition home or self-care (01) ==
LOC: ORWHC2ENDO 09:05
PROVIDERS: ATTEND Surgery Plastic and Reconstructive Surgery
DX: K29.50 Unspecified chronic gastritis without bleeding (principal); K21.0 Gastro-esophageal reflux disease with esophagitis; K22.10 Ulcer of esophagus without bleeding; K44.9 Diaphragmatic hernia without obstruction or gangrene; E78.5 Hyperlipidemia, unspecified; E66.01 Morbid (severe) obesity due to excess calories; Z79.899 Other long term (current) drug therapy; Z79.891 Long term (current) use of opiate analgesic; Z88.2 Allergy status to sulfonamides; Z90.49 Acquired absence of other specified parts of digestive tract; Z87.891 Personal history of nicotine dependence; Z98.890 Other specified postprocedural states; Z86.19 Personal history of other infectious and parasitic diseases; Z91.018 Allergy to other foods; Z68.35 Body mass index [BMI] 35.0-35.9, adult
CPT/HCPCS: 88305; 43239; J2001; J2704

== ENCOUNTER → 2019-06-10 | Outpatient (CLI) | payer OTHER ==
[2019-06-10 12:26] LABS: HGB 13.3 gm/dL (11.4-16.0); MCH 29.1 pg (25.0-35.0); MCHC 32.4 g/dL (31.0-37.0); MCV 89.8 fL (80.0-100.0); Mean Platelet Volume 8.4; Platelet Count 344 k/uL (150-450); RBC 4.57 m/uL (3.80-5.40); RDW 13.2 % (11.5-15.5); WBC 9.4 k/uL (3.8-10.6)
== END | disposition home or self-care (01) ==
LOC: LABPAT 11:39
PROVIDERS: ATTEND Anesthesiology
DX: Z01.812 Encounter for preprocedural laboratory examination (principal)
CPT/HCPCS: 36415; 85027

== ENCOUNTER 2019-06-12 09:56 | Day surgery (SDC) | payer OTHER ==
--- NOTE | 2019-06-12 03:46 | P.GSHP ---
History of Present Illness H&P Date: 06/12/19 CHIEF COMPLAINT: Paraesophageal hiatal hernia with gastroesophageal reflux disease. HISTORY OF PRESENT ILLNESS: The patient is a 58-year-old female who presents with paraesophageal hiatal hernia. She has completed an esophageal manometry including upper endoscopy workup. Now she presents for surgical intervention. PAST MEDICAL HISTORY: Please see list. PAST SURGICAL HISTORY: Please see list. MEDICATIONS: Please see list. ALLERGIES: Please see list. SOCIAL HISTORY: No illicit drug use FAMILY HISTORY: No reports of Crohn disease or ulcerative colitis. REVIEW OF ORGAN SYSTEMS: CONSTITUTIONAL: No reports of fevers or chills. GI: Denies any blood in stools or constipation. PHYSICAL EXAM: VITAL SIGNS: Stable GENERAL: Well-developed pleasant and in no acute distress. HEENT: No scleral icterus. Extraocular movements grossly intact. Moist buccal mucosa. NECK: Supple without lymphadenopathy. CHEST: Unlabored respirations. Equal bilateral excursions. CARDIOVASCULAR: Regular rate and rhythm. Distal 2+ pulses. ABDOMEN: Soft, nondistended. No peritoneal signs. MUSCULOSKELETAL: No clubbing, cyanosis, or edema. SKIN: Well-perfused. Good skin turgor. MANOMETRY: Shows no evidence of achalasia or scleroderma. ASSESSMENT: 1. Diaphragmatic paraesophageal hiatal hernia with severe gastroesophageal reflux disease. PLAN: 1. Recommend proceeding with a robotic paraesophageal hiatal hernia with possible mesh. 2. Benefits and risks of surgical intervention was discussed including possibility of open technique. 3. Inpatient hospitalization recommended of 2 nights 4. DVT prophylaxis. 5. Antibiotic prophylaxis. 6. She has also completed a very low caloric high-protein diet to address underlying hepatomegaly. Past Medical History Past Medical History: GERD/Reflux, Hyperlipidemia, Liver Disease Additional Past Medical History / Comment(s): Hepatitis A years ago. Recurrant Hiatal hernia (surgery 01/30/19) , very painful. History of Any Multi-Drug Resistant Organisms: None Reported Past Surgical History: Cholecystectomy Additional Past Surgical History / Comment(s): EGD/Colonoscopies, ROBOTIC ASSISTED REPAIR HIATAL HERNIA JAN 27, 2019 with DILATION Past Anesthesia/Blood Transfusion Reactions: No Reported Reaction Past Psychological History: Anxiety, Depression Additional Psychological History / Comment(s): no current tx Smoking Status: Current some day smoker Past Alcohol Use History: None Reported Additional Past Alcohol Use History / Comment(s): Smoked 20 years est, 1 ppd, quit smoking 2013. Does Vape few times per week. No alcohol since 07/2018 Past Drug Use History: Marijuana Additional Drug Use History / Comment(s): occasionally - Past Family History Mother Family Medical History: Cancer Additional Family Medical History / Comment(s): breast Medications and Allergies Home Medications Medication Instructions Recorded Confirmed Type Atorvastatin [Lipitor] 20 mg PO DAILY 11/22/18 06/09/19 History Hydrocodone/Acetaminophen [[place] 1 tab PO BID 05/30/19 06/09/19 History 10-325] Multivitamins, Thera [Multivitamin 1 tab PO DAILY 05/30/19 06/09/19 History (formulary)] Omeprazole 40 mg PO BID 05/30/19 06/09/19 History Allergies Allergy/AdvReac Type Severity Reaction Status Date / Time good Allergy Anaphylaxis Verified 06/09/19 08:20 sulfamethoxazole Allergy Rash/Hives Verified 06/09/19 08:20 [From Bactrim] trimethoprim [From Bactrim] Allergy Rash/Hives Verified 06/09/19 08:20
[~2019-06-12 09:56] MED LIST changes: +CHLORHEXIDINE GLUCONATE 15 ML CUP MUCOUS MEM ONE; +DEXAMETHASONE SOD PHOSPHATE 10 MG/ML 1 ML VIAL IV ONE; +HEPARIN SODIUM,PORCINE 5,000 UNIT/ML 1 ML VIAL SQ ONE; +HYDROmorphone 0.5 MG/0.5 ML SYRINGE IVP PRN; -LACTATED RINGERS 1,000 ML IV SCH; +ONDANSETRON 4 MG/2 ML VIAL IVP ONE; +PANTOPRAZOLE 40 MG/10 ML VIAL IV STA
[2019-06-12] MEDS: LACTATED RINGERS 1,000 ML IV SCH ×2 (10:35→15:04)
[2019-06-12] MEDS ORDERED: ONDANSETRON 4 MG/2 ML VIAL IVP ONE (10:35)
[2019-06-12] MEDS ORDERED: DEXAMETHASONE SOD PHOSPHATE 10 MG/ML 1 ML VIAL IV ONE (10:35)
[2019-06-12] MEDS ORDERED: PROPOFOL 10 MG/ML 20 ML VIAL IV ONE (10:56)
[2019-06-12] MEDS ORDERED: MIDAZOLAM 2 MG/2 ML VIAL ONE (10:56)
[2019-06-12] MEDS ORDERED: ROCURONIUM BROMIDE 10 MG/ML 10 ML VIAL IV ONE (10:56)
[2019-06-12] MEDS ORDERED: HYDROmorphone (PF) 1 MG/ML ONE (10:56)
[2019-06-12] MEDS ORDERED: LIDOCAINE 1% INJ 10MG/ML (20 ML MDV) ONE (10:56)
[2019-06-12] MEDS ORDERED: GLYCOPYRROLATE 0.2 MG/ML 2 ML VIAL ONE (10:56)
[2019-06-12] MEDS ORDERED: NEOSTIGMINE 1 MG/ML 10 ML VIAL ONE (10:56)
[2019-06-12] MEDS ORDERED: fentaNYL (PF) 50 MCG/ML 2 ML AMP ONE (10:56)
[2019-06-12] MEDS ORDERED: LIDOCAINE 1%-EPI 1:100,000 20 ML VIAL SQ ONE (12:00)
[2019-06-12] MEDS ORDERED: LACTATED RINGERS 1,000 ML IV ONE (13:25)
[2019-06-12] MEDS ORDERED: HYDROmorphone 1 MG/ML 1 ML SYRINGE IVP ONE ×4 (14:08→14:58)
[2019-06-12] MEDS ORDERED: diphenhydrAMINE 50 MG/ML 1 ML VIAL IVP ONE (14:08)
--- NOTE | 2019-06-12 14:09 | P.OP ---
Date of Procedure: 06/12/19 Description of Procedure: SURGEON: ORALIA ESCOBAR MD PREOPERATIVE DIAGNOSES: 1. Symptomatic paraesophageal diaphragmatic hiatal hernia, recurrent 2. Gastroesophageal reflux disease. 3. Anxiety disorder 4. Depressive disorder 5. Chronic obstructive pulmonary disease 6. Morbid obesity due to excess calories, BMI 34.7 POSTOPERATIVE DIAGNOSES: 1. Recurrent paraesophageal midline diaphragmatic hernia, 3 x 7 cm, with incarceration. 2. Gastroesophageal reflux disease. 3. Anxiety disorder 4. Depressive disorder 5. Chronic obstructive pulmonary disease 6. Morbid obesity due to excess calories, BMI 34.7 OPERATION: 1. Robotic-assisted da Teodora Xi laparoscopic repair of recurrent incarcerated paraesophageal hiatal hernia, 7 x 3 cm, with [place] Biopatch A 8 x 8 cm. 2. Intraoperative esophagogastroduodenoscopy 3. Removal of foreign body 4. Distal esophageal dilation using the 56-Filipino bougie ANESTHESIA: General with local anesthetic. ESTIMATED BLOOD LOSS: 10 mL SPECIMENS REMOVED: None COMPLICATIONS: None. Condition: stable Disposition: floor FINDINGS: 1. Midline incarcerated paraesophageal hiatal hernia 7 x 3 cm with involvement of over 30% stomach within the mediastinum 2. Intraoperative upper endoscopy confirms complete closure of hiatal hernia from Hill grade 3 to Hill grade 1 3. Intra-abdominal esophageal length of 3 cm obtained INDICATIONS: The patient is a 58-year-old female who presents recurrent diaphragmatic hiatal hernia following coughing spells including lifting moderate weight. She reports a pulling sensation with epigastric pain. She has history of prior repair of her hiatal hernia. Preoperative workup including upper endoscopy demonstrated a Hill grade 3 lower esophageal valve. Given the severity of symptoms, she had elected for surgical intervention. Benefits and risks including bleeding, infection, recurrence, dysphagia, injury to the lung, need for further surgery was described at length. Informed consent was obtained. DESCRIPTION: The patient was brought into the operating room and placed in supine position. Preoperatively she had received heparin subcutaneously for DVT prophylaxis. After general induction, the abdomen was prepped and draped in standard sterile fashion. The patient had previously voided prior to coming to the operating room. [place] draping was placed along the abdomen. A timeout protocol was confirmed with the surgical team, for which the patient's name, procedure to be performed including DVT prophylaxis with bilateral SCDs, and preoperative antibiotics were also confirmed. A robotic da Teodora Xi system was prepped and primed. At 12 cm from the xiphoid to just below the umbilicus, proposed port sites were marked with indelible marker along the left axillary line, left mid-clavicular line with each ports were marked 10 cm from each other. A 5 mm 0 degrees laparoscopic trocar entry was performed along the left upper quadrant. The abdomen was insufflated to 15 mmHg pressure was tolerated well. Diagnostic laparoscopy demonstrated no injury to bowel, viscera, or mesentery. No injury had occurred to the small bowel or viscera. Omental fat was found adhered to the left upper quadrant abdominal wall and undisturbed. Next, one 8 mm robotic port was placed along the right upper abdomen. An 8-mm port was were placed along the left lateral abdominal wall. The camera 8-mm port was maintained along the epigastrium via the hernia defect. Another 12 mm port was placed along the left upper abdominal wall after exchanging the 5 mm port. Please note that the ports were placed at least 20 cm away from the target anatomy. Care was taken to check that each robotic arm were safely away from collision with the bed or the patient. At the epigastrium, a medium sized Angela liver retractor was placed under direct visualization with the Iron Culinary Manager placed under the right shoulder of the patient. All robotic arms were used. The patient was repositioned in reverse Trendelenburg position at 20-degrees after lowering the bed. The robot was docked above the right side of the patient. Using a grasper for arm 3, a grasper for arm 1, including vessel sealer for arm 2, the robotic system was docked and primed as described. Instruments were interchanged by the registered medical assistant. I had sat at the console. The hiatus had disrupted anteriorly with incarceration of 30% stomach into the mediastinum. Initial dissection was performed along the hiatus for release of the hernia sac. The remnant gastrohepatic ligament was cleaved using a vessel sealer. Next, the phrenoesophageal ligament was mobilized and the distal esophagus was mobilized circumferentially. Previous mesh placement was identified and excised as a foreign body. The sutures of Surgidec was wound and intact. The left and right crura was identified. Circumferentially, the hernia sac was excised and brought into the peritoneal cavity. Moderate dissection into the mediastinum was performed to release the esophagus into the abdominal cavity. Hernia sac was reduced into the peritoneal cavity after extensive dissection. The measured defect was consistent with 7 cm axial length and 3 cm in width. After dissection, the distal esophagus of 3 cm was brought into the abdominal cavity. Once the hiatus and crura was dissected, 2-0 VLOC non-absorbable suture was placed to reapproximate the diaphragmatic hiatus posteriorly including from 9:00 to 12 o'clock position with snug closure along a 56-Filipino bougie. To buttress the repair, a [place] Biopatch A was prepared along the back table and cut in half of a low-hole fashion as to reinforce the repair as an underlay. The mesh was placed along the crural repair and tagged using horizontal mattress sutures using 2-0 VLOC. I went to the head of the bed to perform intraoperative esophagogastroduodenoscopy. An Olympus gastroscope was passed through posterior oropharynx. Retroflexion of the scope confirmed a Hill grade 1 lower esophageal valve. The stomach had been desufflated. No evidence of leaks were found of the esophagus or stomach. The squamocolumnar junction was intra-abdominal with at least 3 cm of distal esophagus in the abdomen. The GI tract with desufflated This concluded the endoscopic portion of the case. The robot was undocked from the patient. I re-scrubbed into the case. All instruments and pneumoperitoneum and specimens were evacuated from the abdominal cavity. Incisions were reapproximated using 4-0 Monocryl in an interrupted subcuticular fashion. Liquid glue was applied to the skin. Local anesthetic was infiltrated in all wounds for postop analgesia. Multiple intra-abdominal films were obtained. At the end of the procedure, needle, sponge, and instrument count was verified correct by the surgical elastic knitter. The patient had tolerated the procedure well and was taken to the postanesthesia unit in stable condition. Intraoperative films were reviewed with the patient's family who was pleased with the level of care. Console time 87 minutes.
[2019-06-12] MEDS ORDERED: HYOSCYAMINE ORAL DROPS 1.875 MG/15 ML BOTTLE PO PRN (14:10)
[2019-06-12] MEDS: METOCLOPRAMIDE 5 MG/ML 2 ML VIAL IVP SCH (18:17)
[2019-06-12] MEDS: ONDANSETRON 4 MG/2 ML VIAL IVP SCH (18:18)
[2019-06-12] MEDS: SIMETHICONE 40 MG/0.6 ML DROPS 2,000 MG/30 ML BOTTLE PO SCH ×2 (18:18→20:41)
[2019-06-12] MEDS: D5-0.45% NACL WITH KCL 20MEQ/L 1,000 ML IV SCH (18:19)
[2019-06-12] MEDS: DEXAMETHASONE SOD PHOSPHATE 4 MG/ML 1 ML VIAL IV SCH (18:58)
[2019-06-12] MEDS ORDERED: HYDROmorphone 1 MG/ML 1 ML SYRINGE IVP PRN (19:28)
[2019-06-12] MEDS: HYDROcodone/APAP 10-325MG 1 EACH TAB PO SCH (20:40)
[2019-06-13] MEDS: ONDANSETRON 4 MG/2 ML VIAL IVP SCH ×2 (01:00→06:51)
[2019-06-13] MEDS: D5-0.45% NACL WITH KCL 20MEQ/L 1,000 ML IV SCH (01:07)
[2019-06-13] MEDS: DEXAMETHASONE SOD PHOSPHATE 4 MG/ML 1 ML VIAL IV SCH ×2 (01:08→06:47)
[2019-06-13] MEDS: METOCLOPRAMIDE 5 MG/ML 2 ML VIAL IVP SCH ×2 (01:12→06:40)
[2019-06-13] MEDS: HYDROcodone/APAP 10-325MG 1 EACH TAB PO SCH (08:01)
[2019-06-13] MEDS: SIMETHICONE 40 MG/0.6 ML DROPS 2,000 MG/30 ML BOTTLE PO SCH (08:01)
[2019-06-13 09:18] VITALS: RESP 20
--- NOTE | 2019-06-13 09:50 | FL ---
EXAMINATION TYPE: FL esophagus cervic/pharynx DATE OF EXAM: 06/13/2019 LIMITED ESOPHAGRAM: CLINICAL HISTORY: hiatal hernia repair surgery yesterday. TECHNIQUE: Limited esophagram is performed utilizing 30 oz of Isovue-370. A total of 31 seconds of f luoroscopic time was utilized during procedure. 16 spot images saved to PACS for this study. Comparison: Most recent swallow study May 18, 2019 FINDINGS: The patient swallowed contrast without difficulty or delay. Esophageal peristalsis and mo tility are satisfactory. There is good flow of contrast along the diaphragmatic hiatus into the stoma ch, there is no evidence of contrast extravasation to suggest leak. No persistent hiatal hernia is se en. Patient remains asymptomatic. Cholecystectomy clips incidentally noted. IMPRESSION: No evidence of leak or significant obstruction status post successful repair of recurrent hiatal hernia yesterday.
--- NOTE | 2019-06-13 10:01 | P.DS ---
Providers Expected date of discharge: 06/13/19 Attending physician: Mercedez Patel Primary care physician: Steven Sanchez Hospital Course: 58-year-old female who is status post robotic-assisted laparoscopic repair of right current incarcerated paraesophageal hiatal hernia, removal of foreign body, and distal esophageal dilation with Dr. Patel on 06/12/2019. Patient is doing well postoperatively without any immediate complications. Esophagram completed negative for leak or obstruction. Her pain is controlled on oral medications. She is tolerating diet without nausea. Vital signs are stable. She is stable for discharge home today. Please see EMR for further hospital course details. Discharge diagnosis 1. Recurrent paraesophageal midline diaphragmatic hernia, 3 x 7 cm, with incarceration. 2. Gastroesophageal reflux disease. 3. Anxiety disorder 4. Depressive disorder 5. Chronic obstructive pulmonary disease 6. Morbid obesity due to excess calories, BMI 34.7 Nurse practitioner note has been reviewed by physician. Signing provider agrees with the documented findings, assessment, and plan of care. Plan - Discharge Summary Discharge Rx Participant: No New Discharge Prescriptions: New Bisacodyl [Dulcolax] 5 mg PO DAILY PRN #10 tablet. PRN Reason: Constipation Simethicone 40 mg/0.6 ml Drops [Mylicon Drops] 40 mg PO PCHS PRN #30 ml PRN Reason: gas Ondansetron Odt [Zofran Odt] 4 mg PO Q8HR PRN #9 tab PRN Reason: Nausea Continue Omeprazole 40 mg PO BID Hydrocodone/Acetaminophen [[place] 10-325] 1 tab PO BID No Action Atorvastatin [Lipitor] 20 mg PO DAILY Multivitamins, Thera [Multivitamin (formulary)] 1 tab PO DAILY Discharge Medication List Atorvastatin [Lipitor] 20 mg PO DAILY 11/22/18 [History] Hydrocodone/Acetaminophen [[place] 10-325] 1 tab PO BID 05/30/19 [History] Multivitamins, Thera [Multivitamin (formulary)] 1 tab PO DAILY 05/30/19 [History] Omeprazole 40 mg PO BID 05/30/19 [History] Bisacodyl [Dulcolax] 5 mg PO DAILY PRN #10 tablet. 06/13/19 [Rx] Ondansetron Odt [Zofran Odt] 4 mg PO Q8HR PRN #9 tab 06/13/19 [Rx] Simethicone 40 mg/0.6 ml Drops [Mylicon Drops] 40 mg PO PCHS PRN #30 ml 06/13/19 [Rx] Follow up Appointment(s)/Referral(s): Mercedez Patel MD [STAFF PHYSICIAN] - 1 Week Activity/Diet/Wound Care/Special Instructions: No driving while taking [place] No lifting over 10 pounds You may shower. No soaking or tub baths Very light activity until you are reevaluated at your follow up appointment with your surgeon
[2019-06-13 12:01] VITALS: BP 116/74; PULSE 89; TEMP 98.1
[2019-06-13 12:03] VITALS: BMI 34.7
== END 2019-06-13 12:21 | disposition home or self-care (01) ==
LOC: OR 09:56 → 6PED 14:49 → OR 06-13 12:21
PROVIDERS: ATTEND Surgery Plastic and Reconstructive Surgery
DX: K44.0 Diaphragmatic hernia with obstruction, without gangrene (principal); K21.9 Gastro-esophageal reflux disease without esophagitis; J44.9 Chronic obstructive pulmonary disease, unspecified; F41.9 Anxiety disorder, unspecified; F32.9 Major depressive disorder, single episode, unspecified; E78.5 Hyperlipidemia, unspecified; E66.01 Morbid (severe) obesity due to excess calories; F17.210 Nicotine dependence, cigarettes, uncomplicated; Z68.34 Body mass index [BMI] 34.0-34.9, adult; Z88.2 Allergy status to sulfonamides; Z88.1 Allergy status to other antibiotic agents; Z91.018 Allergy to other foods; Z86.19 Personal history of other infectious and parasitic diseases; Z90.49 Acquired absence of other specified parts of digestive tract; Z79.891 Long term (current) use of opiate analgesic; Z79.899 Other long term (current) drug therapy; Z80.3 Family history of malignant neoplasm of breast
CPT/HCPCS: 88304; 74210; 43282; C1781; J2250; J1200; J1644; J1100 ×3; J2710; J2765 ×2; J0690; J2405 ×2; J2001; J3010; J1170 ×2; J2704; C9113; Q9967

== ENCOUNTER → 2020-01-04 | Outpatient (CLI) | payer OTHER ==
--- NOTE | 2020-01-04 08:46 | FL ---
EXAMINATION TYPE: FL barium swallow DATE OF EXAM: 01/04/2020 CLINICAL INDICATION: 59-year-old female K44.9. Patient with hiatal hernia repair January 2019 with recurrent hiatal hernia and revision early 2019. Now with pain. COMPARISON: 06/13/2019 Total Fluoroscopy Time: 1 minute 10 seconds. Total images: 33. FINDINGS: Single contrast technique with thin barium was utilized. The swallowing mechanism is normal. The cervical and thoracic portions have a normal course and caliber. Mild tertiary peristaltic contra ctions are demonstrated. The mucosa is normal and no persistent filling defect is encountered. No sizable recurrent hiatal hernia is identified. Imaging performed in the upright position LPO and R AO. IMPRESSION: No sizable recurrent hiatal hernia, obstruction, stricture, or leak.
== END | disposition home or self-care (01) ==
LOC: RADUSWWP 07:48
PROVIDERS: ATTEND Surgery Plastic and Reconstructive Surgery
DX: K44.9 Diaphragmatic hernia without obstruction or gangrene (principal)
CPT/HCPCS: 74220

== ENCOUNTER 2020-02-02 06:48 | Day surgery (SDC) | payer OTHER ==
[2020-01-08 09:13] VITALS: BMI 33.5
--- NOTE | 2020-02-02 06:32 | P.GSHP ---
History of Present Illness H&P Date: 02/02/20 CHIEF COMPLAINT: Incisional hernia. HISTORY OF PRESENT ILLNESS: The patient is a 59-year-old female who presents with a history of swelling along the upper abdomen. Findings were consistent with possible incisional hernia. Now she presents for further evaluation and management. PAST MEDICAL HISTORY: Please see list. PAST SURGICAL HISTORY: Please see list. MEDICATIONS: Please see list. ALLERGIES: Please see list. SOCIAL HISTORY: No illicit drug use FAMILY HISTORY: No reports of Crohn disease or ulcerative colitis. REVIEW OF ORGAN SYSTEMS: CONSTITUTIONAL: No reports of fevers or chills. GI: Denies any blood in stools or constipation. PHYSICAL EXAM: VITAL SIGNS: Stable GENERAL: Well-developed pleasant female in no acute distress. HEENT: No scleral icterus. Extraocular movements grossly intact. Moist buccal mucosa. NECK: Supple without lymphadenopathy. CHEST: Unlabored respirations. Equal bilateral excursions. CARDIOVASCULAR: Regular rate and rhythm. Distal 2+ pulses. ABDOMEN: Soft, nondistended. Tender along the upper abdomen. Protuberant. MUSCULOSKELETAL: No clubbing, cyanosis, or edema. ASSESSMENT: 1. Incisional ventral hernia. 2. Morbid obesity, BMI 45.2 PLAN: 1. Recommend proceeding with robotic ventral hernia repair with mesh. 2. Benefits and risks of surgical intervention was discussed including possibility of open technique. 3. DVT prophylaxis. 4. Antibiotic prophylaxis. Past Medical History Past Medical History: Hyperlipidemia, Liver Disease Additional Past Medical History / Comment(s): Hepatitis A -1979. hx gestational hypertension-no problems since, hx stomach ulcer, hx hiatal hernia, wears a pessary for bladder leakage. Was on steroid pack 01/11/20 for poison gonzales, & surgery for ventral hernia postponed. History of Any Multi-Drug Resistant Organisms: None Reported Past Surgical History: Cholecystectomy, Hernia Repair Additional Past Surgical History / Comment(s): EGD/Colonoscopies, ROBOTIC ASSISTED REPAIR HIATAL HERNIA 2018 - then revision 06/2019 Past Anesthesia/Blood Transfusion Reactions: No Reported Reaction Smoking Status: Former smoker, Vaper - Past Family History Mother Family Medical History: Cancer Additional Family Medical History / Comment(s): breast Sister(s) Family Medical History: Cancer Medications and Allergies Home Medications Medication Instructions Recorded Confirmed Type Atorvastatin [Lipitor] 20 mg PO DAILY 11/22/18 01/30/20 History Hydrocodone/Acetaminophen [[place] 0.5 tab PO BID PRN 05/30/19 01/30/20 History 10-325] Omeprazole 40 mg PO QAM 05/30/19 01/30/20 History Ondansetron Odt [Zofran Odt] 4 mg PO Q8HR PRN #9 tab 06/13/19 01/30/20 Rx Ascorbic Acid [Vitamin C] 1,000 mg PO DAILY 01/08/20 01/30/20 History Mv-Min/Vit C/Glut/Lysine/Hc124 1 each PO DAILY 01/08/20 01/30/20 History [Airborne Tablet Chewable] Allergies Allergy/AdvReac Type Severity Reaction Status Date / Time good Allergy Anaphylaxis Verified 01/30/20 13:16 sulfamethoxazole Allergy Rash/Hives Verified 01/30/20 13:16 [From Bactrim] trimethoprim [From Bactrim] Allergy Rash/Hives Verified 01/30/20 13:16 morning glory Allergy Unknown Uncoded 01/30/20 13:16
[~2020-02-02 06:48] MED LIST changes: -CHLORHEXIDINE GLUCONATE 15 ML CUP MUCOUS MEM ONE; -HYDROmorphone 0.5 MG/0.5 ML SYRINGE IVP PRN; +LIDOCAINE 1% (10MG/ML) FOR IV START INTRADERMA PRN; -LIDOCAINE 1% 20 ML VIAL (10MG/ML) FOR IV START INTRADERMA PRN; +MIDAZOLAM 2 MG/2 ML VIAL IV PRN; -ONDANSETRON 4 MG/2 ML VIAL IVP ONE; -PANTOPRAZOLE 40 MG/10 ML VIAL IV STA; +fentaNYL (PF) 50 MCG/ML 2 ML AMP IVP PRN
[2020-02-02 07:40] LABS: Glucose,Whole Blood 121 mg/dL (75-99)
[2020-02-02 07:48] LABS: Basophils # (A) 0.1 k/uL (0-0.2); Basophils % (A) 1 %; Eosinophils # (A) 0.1 k/uL (0-0.7); Eosinophils % (A) 1 %; HCT 38.9 % (34.0-46.0); HGB 12.8 gm/dL (11.4-16.0); Lymphocytes # (A) 1.9 k/uL (1.0-4.8); Lymphocytes % (A) 18 %; MCH 29.2 pg (25.0-35.0); MCHC 32.8 g/dL (31.0-37.0); Mean Platelet Volume 7.9; Monocytes # (A) 0.4 k/uL (0-1.0); Monocytes % (A) 4 %; Neutrophils # (A) 8.1 k/uL (1.3-7.7); Neutrophils % (A) 76 %; Platelet Count 258 k/uL (150-450); RBC 4.38 m/uL (3.80-5.40); RDW 13.1 % (11.5-15.5); WBC 10.6 k/uL (3.8-10.6)
[2020-02-02] MEDS: ONDANSETRON 4 MG/2 ML VIAL IVP ONE ×2 (08:01→11:35)
[2020-02-02] MEDS: LACTATED RINGERS 1,000 ML IV SCH ×2 (08:01→11:25)
--- NOTE | 2020-02-02 08:23 | P.ANPRN ---
Procedure Note - Anesthesia - Nerve Block Performed Bilateral Rectus Abdominis Single Time Out Performed: Yes (08) Date of Procedure: 02/02/20 Procedure Start Time: 08:07 Procedure Stop Time: 08:17 Location of Patient: PreOp Indication: Acute Post-Operative Pain, Analgesia, Requested by Surgeon Specifically requested for management of pain by : Mercedez Patel Sedation Type: Sedate with meaningful contact maintained Preparation: Sterile Prep Position: Supine Catheter: None Needle Types: Pajunk Needle Gauge: 20 Ultrasound used to visualize needle placement: Yes Ultrasound used to observe medication spread: Yes Injectate: 0.5% Ropivacaine (see comment for volume) (15 mL each side) Blood Aspirated: No Pain Paresthesia on Injection Noted: No Resistance on Injection: Normal Image Stored and Saved: Yes Events: Uneventful and Well Tolerated
[2020-02-02] MEDS ORDERED: SUCCINYLCHOLINE CHLORIDE 100 MG/5 ML SYR IV ONE (09:13)
[2020-02-02] MEDS ORDERED: LIDOCAINE 1% INJ 10MG/ML (20 ML MDV) ONE (09:13)
[2020-02-02] MEDS ORDERED: fentaNYL (PF) 50 MCG/ML 2 ML AMP ONE (09:13)
[2020-02-02] MEDS ORDERED: PROPOFOL 10 MG/ML 20 ML VIAL IV ONE (09:13)
[2020-02-02] MEDS ORDERED: ROPIVACAINE 5 MG/ML 30 ML VIAL ONE (09:13)
[2020-02-02] MEDS ORDERED: MIDAZOLAM 2 MG/2 ML VIAL ONE (09:13)
[2020-02-02] MEDS ORDERED: NEOSTIGMINE 1 MG/ML 10 ML VIAL ONE (09:13)
[2020-02-02] MEDS ORDERED: HYDROmorphone (PF) 1 MG/ML ONE (09:13)
[2020-02-02] MEDS ORDERED: ROCURONIUM BROMIDE 10 MG/ML 5 ML VIAL IV ONE (09:13)
[2020-02-02] MEDS ORDERED: KETOROLAC 15 MG/ML 1 ML VIAL ONE (09:13)
[2020-02-02] MEDS ORDERED: GLYCOPYRROLATE 0.2 MG/ML 2 ML VIAL ONE (09:13)
[2020-02-02] MEDS ORDERED: BUPIVACAINE (PF) 0.25% 30 ML VIAL SQ ONE (09:38)
[2020-02-02] MEDS ORDERED: LACTATED RINGERS 1,000 ML IV ONE (09:47)
[2020-02-02 10:10] VITALS: TEMP 97.7
--- NOTE | 2020-02-02 10:10 | P.OP ---
Date of Procedure: 02/02/20 Description of Procedure: SURGEON: MERCEDEZ PATEL MD PREOPERATIVE DIAGNOSES: 1. Left upper quadrant abdominal pain 2. Gastroesophageal reflux disease. 3. Anxiety disorder 4. Depressive disorder 5. Chronic obstructive pulmonary disease 6. Chronic pain syndrome POSTOPERATIVE DIAGNOSES: 1. Incarcerated incisional hernia, left upper quadrant, 2 cm 2. Gastroesophageal reflux disease. 3. Anxiety disorder 4. Depressive disorder 5. Chronic obstructive pulmonary disease 6. Chronic pain syndrome OPERATION: 1. Robotic-assisted da Teodora Xi laparoscopic repair of initial incarcerated incisional hernia, left upper quadrant Anesthesia: GETA, regional, local Estimated Blood Loss (ml): 5 Pathology: None COMPLICATIONS: None. Operative Findings: 1. Incarcerated incisional hernia, left upper quadrant 2 cm 2. Omental adhesions incarcerated, left upper quadrant reduced and lysed 3. Fascia repaired using #1 V-lock suture INDICATIONS: The patient is a 59-year-old female who presents with pain along the left upper quadrant suspicious for adhesions including hernia. Surgical intervention with laparoscopic versus robotic and open techniques were reviewed. Placement of mesh was also reviewed. Benefits and risks were thoroughly described. Informed consent was obtained. DESCRIPTION OF PROCEDURE: The patient was brought into the operating room and laid in supine position. After general induction, the abdomen had been prepped and draped in standard sterile fashion. Ioban draping was also placed. Prior to incision, a timeout protocol was confirmed with surgical team regarding the patient's name including procedures to be performed. The robot was primed prior to the procedure. A field block using local anesthetic was placed along hernia site including the proposed port sites. Initial incision was made with an #11 blade along the left upper quadrant. A 0 degree 5 mm laparoscopic trocar entry was performed and insufflated. Three 8 mm ports were placed along the l right lateral abdominal wall under direct localization after exchanging the 5-mm for an 8 mm port. Placements of the ports were 15 cm from the target anatomy and 10 cm apart. An accessory 12 mm port was placed at the left upper quadrant for exchange of mesh including sutures after exchanging the 5 mm port The DiscoveRXi Xi robot was previously primed, prepped and draped then docked from the right side of the patient onto the right side of the patient. I then sat at the robot Cloud Take[employer] Xi console where working arms of the robot including Bovie cautery connected to robotic scissors, needle snaker tractor driver, and graspers placed by the information technology assistant. Incarcerated omental contents were found along the left upper quadrant at pre- existing incision. The defect was reduced and adhesions were lysed to reveal a 2 cm fascial defect. The incarcerated contents were reduced as the peritoneal fat was cleaned from the abdominal wall. Next, hemostasis was checked with cautery. The hernia defects were oversewn using #1 nonabsorbable V-lock suture. A final endoscopic imaging was obtained. All instruments and pneumoperitoneum were evacuated from the abdominal cavity. The da Teodora Xi robot was undocked from the patient. I re-scrubbed into the case for closure of incisions. The fascia of the 12-mm port was probed and less than 8-mm in size. The incisions were reapproximated using 4-0 Monocryl in an interrupted subcuticular fashion. Liquid glue was applied to the skin after cleansing the skin with normal saline and dilute hydrogen peroxide. An abdominal binder was placed. At the end of the procedure, needle, sponge, and instrument count had been verified correct by rn medical surgical. The patient was taken to the postanesthesia care unit in stable condition. Plan - Discharge Summary Discharge Rx Participant: Yes New Discharge Prescriptions: New Ibuprofen [Motrin] 600 mg PO Q8HR PRN #30 tab PRN Reason: Pain Continue Atorvastatin [Lipitor] 20 mg PO DAILY Omeprazole 40 mg PO QAM Hydrocodone/Acetaminophen [[place] 10-325] 0.5 tab PO BID PRN PRN Reason: Pain Ondansetron Odt [Zofran ODT] 4 mg PO Q8HR PRN #9 tab PRN Reason: Nausea Ascorbic Acid [Vitamin C] 1,000 mg PO DAILY Mv-Min/Vit C/Glut/Lysine/Hc124 [Airborne Tablet Chewable] 1 each PO DAILY Discharge Medication List Atorvastatin [Lipitor] 20 mg PO DAILY 11/22/18 [History] Hydrocodone/Acetaminophen [[place] 10-325] 0.5 tab PO BID PRN 05/30/19 [History] Omeprazole 40 mg PO QAM 05/30/19 [History] Ondansetron Odt [Zofran ODT] 4 mg PO Q8HR PRN #9 tab 06/13/19 [Rx] Ascorbic Acid [Vitamin C] 1,000 mg PO DAILY 01/08/20 [History] Mv-Min/Vit C/Glut/Lysine/Hc124 [Airborne Tablet Chewable] 1 each PO DAILY 01/08/20 [History] Ibuprofen [Motrin] 600 mg PO Q8HR PRN #30 tab 02/02/20 [Rx] Follow up Appointment(s)/Referral(s): Mercedez Patel MD [STAFF PHYSICIAN] - 02/06/20 Patient Instructions/Handouts: Abdominal Binder (DC), Ventral Hernia Repair (DC) Activity/Diet/Wound Care/Special Instructions: Wear abdominal binder at all times except showering. Using antibacterial soap. No lifting over 4 pounds 4 weeks, March 03September shower. No bathtub soaks for 2 weeks, February 15. Discharge Disposition: HOME SELF-CARE
[2020-02-02] MEDS: HYDROmorphone 0.5 MG/0.5 ML SYRINGE IVP PRN ×2 (10:18→10:34)
[2020-02-02 11:07] VITALS: RESP 18
[2020-02-02] MEDS ORDERED: ONDANSETRON 4 MG/2 ML VIAL ONE (11:36)
[2020-02-02 11:46] VITALS: BP 109/72; PULSE 59
[2020-02-02] MEDS ORDERED: SIMETHICONE 40 MG/0.6 ML DROPS 2,000 MG/30 ML BOTTLE PO ONE (12:23)
== END 2020-02-02 12:34 | disposition home or self-care (01) ==
LOC: OR 06:48
PROVIDERS: ATTEND Surgery Plastic and Reconstructive Surgery
DX: K43.0 Incisional hernia with obstruction, without gangrene (principal); K66.0 Peritoneal adhesions (postprocedural) (postinfection); K21.9 Gastro-esophageal reflux disease without esophagitis; F41.9 Anxiety disorder, unspecified; F32.9 Major depressive disorder, single episode, unspecified; J44.9 Chronic obstructive pulmonary disease, unspecified; G89.4 Chronic pain syndrome; E66.01 Morbid (severe) obesity due to excess calories; E78.5 Hyperlipidemia, unspecified; K08.409 Partial loss of teeth, unspecified cause, unspecified class; F17.290 Nicotine dependence, other tobacco product, uncomplicated; Z88.2 Allergy status to sulfonamides; Z68.42 Body mass index [BMI] 45.0-49.9, adult; Z86.19 Personal history of other infectious and parasitic diseases; Z87.59 Personal history of other complications of pregnancy, childbirth and the puerperium; Z87.11 Personal history of peptic ulcer disease; Z87.19 Personal history of other diseases of the digestive system; Z96.0 Presence of urogenital implants; Z87.2 Personal history of diseases of the skin and subcutaneous tissue; Z90.49 Acquired absence of other specified parts of digestive tract; Z98.890 Other specified postprocedural states; Z79.899 Other long term (current) drug therapy; Z91.018 Allergy to other foods; Z91.09 Other allergy status, other than to drugs and biological substances; Z80.3 Family history of malignant neoplasm of breast; Z80.9 Family history of malignant neoplasm, unspecified
CPT/HCPCS: 49655; S2900; 64486; 64488; 85025; 93005

== ENCOUNTER 2020-07-04 06:47 | Day surgery (SDC) | payer OTHER ==
[2020-07-02 11:59] VITALS: BMI 35.2
[~2020-07-04 06:47] MED LIST changes: -DEXAMETHASONE SOD PHOSPHATE 10 MG/ML 1 ML VIAL IV ONE; -HEPARIN SODIUM,PORCINE 5,000 UNIT/ML 1 ML VIAL SQ ONE; +LACTATED RINGERS 1,000 ML IV SCH; -MIDAZOLAM 2 MG/2 ML VIAL IV PRN; -fentaNYL (PF) 50 MCG/ML 2 ML AMP IVP PRN
[2020-07-04 07:13] VITALS: RESP 16; TEMP 96.5
[2020-07-04] MEDS ORDERED: PROPOFOL 10 MG/ML 20 ML VIAL IV ONE (07:38)
[2020-07-04] MEDS ORDERED: LIDOCAINE 1% INJ 10MG/ML (20 ML MDV) ONE (07:38)
--- NOTE | 2020-07-04 08:10 | P.PCN ---
Date of Procedure: 07/04/20 Description of Procedure: BRIEF HISTORY: Patient is a 60-year-old female presenting for outpatient colonoscopy for hemorrhoids anus and rectum. Patient reports a remote history of colonoscopy. No change in bowel habits. She does report blood per rectum. PROCEDURE PERFORMED: Colonoscopy with polypectomy. PREOPERATIVE DIAGNOSIS: Hemorrhage of the anus and rectum, remote history of colonoscopy. ESTIMATED BLOOD LOSS: Minimal. IV sedation per Anesthesia. PROCEDURE: After informed consent was obtained, the patient, was brought into the endoscopy unit. IV sedation was administered by Anesthesia under continuous monitoring. Digital rectal examination was normal. Initially the Olympus CF-190 flexible video colonoscope was then inserted in the rectum, gradually advanced into the cecum without any difficulty. Careful examination was performed as the scope was gradually being withdrawn. Ileocecal valve and the appendiceal orifice were visualized and appeared normal. Prep was excellent. Mucosa of the cecum, ascending colon, transverse colon, descending colon, sigmoid colon, and rectum appeared normal, with cold snare polypectomy of polyps measuring 3-6 mm in size from the transverse colon, cecum and ascending colon. Multiple small and large mouth diverticula noted in the sigmoid colon.. Retroflexion was performed in the rectum and no lesions were seen and moderate internal hemorrhoids noted. The patient tolerated the procedure well. IMPRESSION: 3 polyps removed with cold snare polypectomy from the cecum, descending colon and transverse colon. Moderate diverticulosis. Internal hemorrhoids. RECOMMENDATIONS: Findings of this examination were discussed with the patient and her family. Okay to resume diet. Okay to resume medications. I will pathology from polypectomies. Recommend repeat colonoscopy 5 years for colon polyps or any pathology from polypectomies.
[2020-07-04 08:32] VITALS: BP 123/84; PULSE 74
== END 2020-07-04 08:55 | disposition home or self-care (01) ==
LOC: ORWHC2ENDO 06:47
PROVIDERS: ATTEND Internal Medicine
DX: D12.3 Benign neoplasm of transverse colon (principal); D12.4 Benign neoplasm of descending colon; K64.8 Other hemorrhoids; K57.30 Diverticulosis of large intestine without perforation or abscess without bleeding; E78.5 Hyperlipidemia, unspecified; F41.9 Anxiety disorder, unspecified; F32.9 Major depressive disorder, single episode, unspecified; K21.9 Gastro-esophageal reflux disease without esophagitis; B15.9 Hepatitis A without hepatic coma; Z79.899 Other long term (current) drug therapy; Z88.2 Allergy status to sulfonamides; Z88.8 Allergy status to other drugs, medicaments and biological substances; Z91.018 Allergy to other foods; Z91.09 Other allergy status, other than to drugs and biological substances
CPT/HCPCS: 45385; 88305

== ENCOUNTER → 2020-10-04 | Outpatient (CLI) | payer OTHER ==
--- NOTE | 2020-10-04 13:08 | CT ---
EXAMINATION TYPE: CT abdomen pelvis w con DATE OF EXAM: 10/04/2020 COMPARISON: None HISTORY: Incisional hernia. CT DLP: 1478 mGycm CONTRAST: CT scan of the abdomen and pelvis is performed with Oral Contrast and with IV Contrast, patient injec fabiola with 100 mL of Isovue M300. FINDINGS: LUNG BASES-: No visible nodule. No infiltrate. LIVER/GB: Cholecystectomy clips are in place. No space occupying hepatic lesion. Biliary tree is of n ormal caliber. PANCREAS: No inflammation. No distinct mass. SPLEEN: No splenic enlargement. No lesion seen. ADRENALS: No nodule. No thickening. KIDNEYS/BLADDER: No hydronephrosis. No nephrolithiasis. No distinct renal mass. Urinary bladder g rossly unremarkable. BOWEL: Normal appendix. Normal bowel caliber. No inflammation. Moderate hiatal hernia. Moderate fec al stasis. GENITAL ORGANS: Pessary is in place. No uterine or adnexal mass seen. LYMPH NODES: No greater than 1cm abdominal or pelvic lymph nodes are appreciated. AORTA: No significant abnormality. OSSEOUS STRUCTURES: No significant abnormality is seen. OTHER: No evidence for incisional hernia. IMPRESSION: 1. All moderate hiatal hernia.
== END | disposition home or self-care (01) ==
LOC: RADCTMAIN 10:56
PROVIDERS: ATTEND Surgery
DX: K43.2 Incisional hernia without obstruction or gangrene (principal); K44.9 Diaphragmatic hernia without obstruction or gangrene
CPT/HCPCS: 74177; Q9967 ×2

== ENCOUNTER → 2021-01-28 | Outpatient (CLI) | payer OTHER ==
[2021-01-28 15:15] VITALS: BP 125/86; PULSE 90; RESP 12; TEMP 98.4
--- NOTE | 2021-01-28 17:41 | P.HPOB ---
History of Present Illness H&P Date: 01/28/21 Chief Complaint: The patient is here for her routine gynecologic exam and ma mmogram. This is a 60-year-old with an LMP of 1996. The patient is here to establish with this office. It has been about 5 years since her last pelvic exam. She has a history of stress urinary incontinence and has been treated with a pessary during the last 9 years. She is still using the original pessary that she received 9 years ago. The pessary has been very helpful for her stress urinary incontinence and she is not interested in surgical treatment for this. She removes the pessary every time she takes shower. She also cleans the pessary every 10 days. She is without gynecologic complaints. She would like to replace the pessary even though she is not having problems with her current pessary. Review of Systems The patient's weight has been stable over the last year. She denies respiratory, cardiac, or G.I. problems. Past Medical History Past Medical History: GERD/Reflux, Hyperlipidemia, Liver Disease Additional Past Medical History / Comment(s): Hepatitis A -1979. hx gestational hypertension-no problems since, hx stomach ulcer, hx hiatal hernia and abdominal wall hernia. 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 Uses a pessary for stress urinary incontinence. Premature menopause at age 36 and she attributes this to fragile X syndrome. History of Any Multi-Drug Resistant Organisms: None Reported Past Surgical History: Cholecystectomy Additional Past Surgical History / Comment(s): EGD/Colonoscopies, ROBOTIC ASSISTED REPAIR HIATAL HERNIA 2018 - then revision 06/2019, and then scar tissue surgery 01/2020. Last colonoscopy July 2020. Past Anesthesia/Blood Transfusion Reactions: No Reported Reaction, Family History of Problems w/ Anesthesia Additional Past Anesthesia/Blood Transfusion Reaction / Comment(s): A sister has severe PONV, headaches. Past Psychological History: Anxiety, Depression Additional Psychological History / Comment(s): no current tx Smoking Status: Former smoker, Vaper Past Alcohol Use History: None Reported Additional Past Alcohol Use History / Comment(s): Smoked 20 years, 1 ppd, quit smoking Mar 2013; Used Vape until 06/2019. Quit drinking alcohol since she has been taking [place] for pain. Past Drug Use History: Marijuana (Uses regularly.) Additional Drug Use History / Comment(s): daily use Additional History: She has been a since 2009 and is not seeing anybody and is not sexually active. She was in the [employer] from 1970 12/09/1985. She is currently not working outside the home. - Past Family History Mother Family Medical History: Cancer, Myocardial Infarction ([place]) Additional Family Medical History / Comment(s): breast cancer Sister(s) Family Medical History: Cancer Additional Family Medical History / Comment(s): breast cancer Daughter(s) Additional Family Medical History / Comment(s): Fragile X syndrome. Father Additional Family Medical History / Comment(s): Alcoholic. Medications and Allergies Home Medications Medication Instructions Recorded Confirmed Type Atorvastatin [Lipitor] 20 mg PO DAILY 11/22/18 01/28/21 History Omeprazole 40 mg PO QAM 05/30/19 01/28/21 History Mv-Min/Vit C/Glut/Lysine/Hc124 1 - 2 each PO DAILY 01/08/20 07/04/20 History [Airborne Tablet Chewable] Acetaminophen [Tylenol Extra 500 - 1,000 mg PO DIRECTED PRN 07/02/20 01/28/21 History Strength] Cholecalciferol [Vitamin D3 (25 25 mcg PO DAILY 07/02/20 01/28/21 History Mcg = 1000 Iu)] Vitamin C, Zinc 1 tab PO DAILY 07/02/20 01/28/21 History HYDROcodone/APAP 10-325MG [[place] 1 tab PO Q4-6H PRN 01/28/21 01/28/21 History 10-325] Allergies Allergy/AdvReac Type Severity Reaction Status Date / Time good Allergy Anaphylaxis Verified 01/28/21 14:20 sulfamethoxazole Allergy Rash/Hives Verified 01/28/21 14:20 [From Bactrim] trimethoprim [From Bactrim] Allergy Rash/Hives Verified 01/28/21 14:20 morning glory Allergy topical Uncoded 01/28/21 14:20 wheepy rash Exam Vital Signs Temp Pulse Resp BP Pulse Ox 01/28/21 14:40 98.4 F 90 12 125/86 95 Intake and Output 01/28/21 01/28/21 01/28/21 06:59 14:59 22:59 Other: Weight 86.183 kg Height 5 feet 4 inches, weight 190 pounds, BMI 32.6. This is a well-developed well-nourished white female who is alert and oriented times 3 in no acute distress. HEENT: Within normal limits. NECK: Supple without mass or thyromegaly. CHEST AND LUNGS: Clear to auscultation. HEART: Regular rate and rhythm. BREASTS: Are without mass or discharge. AXILLARY EXAM: Negative for adenopathy. BACK: Negative for CVA tenderness. ABDOMEN: Soft, nontender, without palpable masses. PELVIC EXAM: Normal external genitalia with mild atrophy. Cervix and vagina appear normal with mild atrophy. She has removed the pessary prior to her examination. There is no evidence of vaginal mucosa erosion or ulceration. There is no unusual discharge. There is minimal prolapse in the form of a grade 1 uterine prolapse, grade 1 rectocele and grade 1 cystocele. This mild degree of prolapse would be considered within normal limits for her age. There is mild urethral mobility with cough and Valsalva with no urinary leakage demonstrated. The uterus is midposition, nongravid size and nontender. There are no palpable adnexal masses or tenderness. RECTAL EXAM: Rectovaginal exam is negative for mass or tenderness and is negative for occult blood. EXTREMITIES: Nontender. IMPRESSION: 1. 60-year-old menopausal female with normal gynecologic exam. 2. History of stress urinary incontinence improved with a ring pessary with knob. 3. History of premature menopause at age 36 which the patient states it is secondary to fragile X syndrome. 4. Strong family history of breast cancer in her mother and sister. She is uncertain as to whether any of these relatives have been tested for cancer genetic mutations. PLAN: 1. Pap smear cotest was performed. 2. Self breast awareness was discussed with the patient. We have also discussed symptoms associated with inflammatory breast cancer. 3. Screening mammogram was done today. 4. She would like to continue to use the ring pessary for stress urinary incontinence and again is declining surgical intervention. I have identified her current pessary as a #4 Milex flexible incontinence pessary with a knob. The average diameter is 2-3/4 inches. A written prescription for this was given to the patient. She will continue to use it as she has been with regular removal and regular cleaning. She will have this replaced either through the [employer] website or from a local pharmacy. 5. We have discussed her family history of breast cancer in 2 first-degree relatives. She would like to proceed with cancer genetic counseling and possible testing. She will be referred to the [facility] for this. 6.Osteoporosis prevention was discussed. I have stressed the importance of adequate calcium, vitamin D and regular exercise. Recommended amounts of calcium and vitamin D were also discussed. I have recommended bone density testing and the order slip was given to the patient for this. 7. She has received the [employer] Covid vaccination. 8. She was advised to return in one year for her annual well woman exam and as needed.
== END ==
LOC: WWCWWP 14:13
PROVIDERS: ATTEND Obstetrics & Gynecology
DX: Z12.31 Encounter for screening mammogram for malignant neoplasm of breast (principal); Z01.419 Encounter for gynecological examination (general) (routine) without abnormal findings; Q99.2 Fragile X chromosome; F41.9 Anxiety disorder, unspecified; F32.9 Major depressive disorder, single episode, unspecified; K21.9 Gastro-esophageal reflux disease without esophagitis; E78.5 Hyperlipidemia, unspecified; Z87.448 Personal history of other diseases of urinary system; Z87.891 Personal history of nicotine dependence; Z88.2 Allergy status to sulfonamides; Z80.3 Family history of malignant neoplasm of breast; Z91.018 Allergy to other foods
CPT/HCPCS: 77063; 77067

== ENCOUNTER → 2021-02-14 | Outpatient (CLI) | payer OTHER ==
--- NOTE | 2021-02-14 09:17 | BD ---
EXAMINATION TYPE: Axial Bone Density DATE OF EXAM: 02/14/2021 COMPARISON: NONE CLINICAL HISTORY: 60 YR OLD FEMALE....ICD-10 CODE: Z78.0 POST MENOPAUSAL Height: 63 Weight: 185 FRAX RISK QUESTIONS: Secondary Osteoporosis: YES 3. Menopause before 45: YES 5. Chronic liver disease: HEP A RISK FACTORS HISTORY OF: Postmenopausal woman: YES AT AGE 36 NATURAL,,,FRAGILE X SYNDROME Take estrogen and/or progesterone medications: YES PREMARIN FOR 5 YRS Hyperparathyroidism: NO Adrenal Insufficiency: NO MEDICATIONS: Prednisone or other steroids: YES ON AND OFF FOR ILLNESS Additional Medications: REFLUX MED, STATIN FOR CHOLESTEROL, VIT D Additional History: FRAGILE "X" SYNDROME, CHOLESTEROL, REFLUX, HEP A EXAM MEASUREMENTS: Bone mineral densitometry was performed using the [employer] System. Bone mineral density as measured about the Lumbar spine is: ----- L1-L4(G/cm2): 0.989 T Score Values are as follows: ----- L1: -1.3 ----- L2: -1.8 ----- L3: -1.4 ----- L4: -2.0 ----- L1-L4: -1.6 Bone mineral density FIRST DEXA AT [facility] Bone mineral density about the R hip (g/cm2): 0.929 Bone mineral density about the L hip (g/cm2): 0.933 T Score values are as follows: -----R Neck: -1.1 -----L Neck: -1.4 -----R Total: -0.6 -----L Total: -0.6 Bone mineral density FIRST STUDY AT [facility] FRAX%s: THERE IS A 7.9% CHANCE FOR A MAJOR OSTEOPOROTIC FX AND A 0.7% FOR HIPS......PROBABILITY FO R FX IN 10 YRS TIME IMPRESSION: Osteopenia (T Score between -2.5 and -1). There is slightly increased risk of fracture and the patient may be considered for treatment. Re-Screen 2-5 years. NOTE: T-SCORE=SD OF THE YOUNG ADULT MEAN.
== END | disposition home or self-care (01) ==
LOC: RADBDWWP 08:41
PROVIDERS: ATTEND Obstetrics & Gynecology
DX: M85.89 Other specified disorders of bone density and structure, multiple sites (principal); Z78.0 Asymptomatic menopausal state
CPT/HCPCS: 77080

== ENCOUNTER → 2021-07-02 | Outpatient (CLI) | payer OTHER ==
--- NOTE | 2021-07-02 22:24 | CT ---
EXAMINATION TYPE: CT abdomen pelvis wo con DATE OF EXAM: 07/02/2021 COMPARISON: CT dated 10/04/2020 HISTORY: Umbilical hernia CT DLP: 811 mGycm Automated exposure control for dose reduction was used. TECHNIQUE: Helical acquisition of images was performed from the lung bases through the pelvis. No IV contrast administration. FINDINGS: Hiatal hernia containing the gastric fundus, slightly larger compared to the previous CT scan. Unrema rkable nondistended stomach, duodenum and small bowel. Colonic diverticulosis, most evident involving the sigmoid colon. Underlying sigmoid colonic lesion cannot be excluded. Normal appendix. Unremarkable unenhanced CT appearance of the liver, spleen, pancreas, adrenals and kidneys. Previous cholecystectomy. Scattered arterial atherosclerotic calcifications. The urinary bladder is not disten ded. Vaginal pessary is noted. No gross uterine or adnexal mass. No suspicious lymphadenopathy or siz able ascites. No definite anterior abdominal wall hernia identified. Bilateral basal posterior subpleural pulmonary reticulations, right minimal cystic changes and mild f ibrotic changes. Interval mild upper endplate depression of L3 vertebral body, possibly chronic yet w as not appreciated in September 2020 CT scan, please correlate clinically. Mild retrolisthesis of L2 over L 3 and anterolisthesis of L4 over L5, stable. No aggressive bone lesion. IMPRESSION: 1. Hiatal hernia containing the gastric fundus, slightly larger compared to the previous CT scan, for surgery consultation. 2. No definite anterior abdominal wall hernia identified. 3. Interval mild upper endplate depression of L3, possibly chronic yet was not appreciated in September CT scan, please correlate clinically. Other incidental findings as described above.
== END | disposition home or self-care (01) ==
LOC: RADCTMAIN 16:07
PROVIDERS: ATTEND Family Medicine
DX: K44.9 Diaphragmatic hernia without obstruction or gangrene (principal); M43.8X6 Other specified deforming dorsopathies, lumbar region
CPT/HCPCS: 74176

== ENCOUNTER → 2021-10-23 | Outpatient (CLI) | payer OTHER ==
--- NOTE | 2021-10-23 17:15 | US ---
EXAMINATION TYPE: US pelvic complete DATE OF EXAM: 10/23/2021 COMPARISON: NONE CLINICAL HISTORY: 61 old female N95.0 POSTMENOPAUSAL BLEEDING. TECHNIQUE: Transabdominal sonographic images of the pelvis were acquired. Transvaginal sonographic i mages were medically necessary to better assess the following anatomy: Date of LMP: Age 36 FINDINGS: EXAM MEASUREMENTS: Uterus: 6.4 x 2.2 x 3.7 cm Endometrial Stripe: .4 cm Right Ovary: 1.7 x 1.4 x 1.4 cm Left Ovary: Unable to visualize. 1. Uterus: Anteverted. Heterogenous round area seen on transvaginal scanning along the left oncology technician ior uterine measuring 8 mm. This is intramural in location. 2. Endometrium: wnl 3. Right Ovary: wnl, seen TA only 4. Left Ovary: Unable to visualize, possibly obscured by overlying bowel gas 5. Bilateral Adnexa: Bowel seen 6. Posterior cul-de-sac: trace fluid IMPRESSION: 1. Endometrial stripe measuring 4 mm is acceptable for a postmenopausal female. 2. Suggestion of an 8 mm intramural fibroid posterior uterine fundus. 3. Unable to visualize the left ovary. 4. Trace cul-de-sac free fluid, atypical in a postmenopausal female. Clinically correlate. Consider f ollow-up to reassess.
--- NOTE | 2021-10-24 13:02 | P.PN ---
Progress Note - Text Progress Note Date: 10/24/21 OUTPATIENT FOLLOW-UP NOTE TEST(S)/RESULTS: Pelvic ultrasound done on 10/23/2021 shows normal endometrial thickness of 4 mm, suggestion of a small 8 mm uterine fibroid, and trace cul-de-sac free fluid. METHOD OF NOTIFICATION: The patient was notified by phone. PATIENT COMMENTS: DIAGNOSIS: 1 episode of postmenopausal bleeding last month with normal endometrial thickness. Small uterine fibroid. Trace cul-de-sac fluid by ultrasound. DISCUSSION: The recommendation is to have a follow-up to reassess the trace cul-de-sac fluid. I have discussed with the patient how this can be a normal finding and large amounts of abdominal and pelvic fluid can be abnormal and caused by many things. We will do a follow-up ultrasound in approximately 3 months to recheck this fluid. Also if recurrent postmenopausal bleeding we will plan on some type of endometrial sampling. PLAN: The above.
== END | disposition home or self-care (01) ==
LOC: RADUSWWP 13:38
PROVIDERS: ATTEND Obstetrics & Gynecology
DX: N95.0 Postmenopausal bleeding (principal)
CPT/HCPCS: 76830; 76856

== ENCOUNTER → 2022-09-25 | Outpatient (CLI) | payer OTHER ==
--- NOTE | 2022-09-25 09:40 | MR ---
EXAMINATION TYPE: MR cervical spine wo con DATE OF EXAM: 09/25/2022 COMPARISON: None HISTORY: Neck pain tingle and itch from shoulders to hands, Tingling in brian feet TECHNIQUE: Multiplanar, multisequence images of the cervical spine were acquired without contrast. C2-C3: No evidence for degenerative disc disease. No disc bulge/herniation or protrusion. No Canal stenosis. Foramina are patent bilaterally. C3-C4: Right paracentral disc bulging or tiny protrusion. Neural foramina remain patent. Mild uncover tebral joint hypertrophy on the right. No canal stenosis. C4-C5: Moderate to severe degenerative disc disease. Broad-based disc protrusion abutting the anterio r margin of the spinal cord. There is uncovertebral joint hypertrophy and mild bilateral foraminal en croachment. C5-C6: Degenerative disc disease. There is uncovertebral joint hypertrophy on the right with small fo ramón area of right paracentral disc bulging. There is moderate right-sided foraminal encroachment. C6-C7: Degenerative disc disease with bilateral uncovertebral joint hypertrophy and broad-based disc bulging but no canal stenosis. Neural foramina are preserved. C7-T1: No evidence for degenerative disc disease. No disc bulge/herniation or protrusion. No Canal stenosis. Foramina are patent bilaterally. Cervical segments are intact. There is normal alignment. Cervical spinal cord is of normal signal. Craniovertebral junction relationships are within normal limits. IMPRESSION: 1. Multilevel degenerative disc disease most marked at C4-5, C5-6 and C6-C7. 2. At C3-C4 there is right paracentral disc bulging or tiny protrusion but no canal stenosis. 3. At C5-C6 there is right-sided uncovertebral joint hypertrophy with right paracentral and lateral d isc bulging resulting in moderate right foraminal encroachment. 4. Broad-based disc bulging but no canal stenosis C6-C7. Neural foramina are remain patent.
== END | disposition home or self-care (01) ==
LOC: RADMRIMAIN 08:40
PROVIDERS: ATTEND Family Medicine
DX: M50.121 Cervical disc disorder at C4-C5 level with radiculopathy (principal); M99.71 Connective tissue and disc stenosis of intervertebral foramina of cervical region
CPT/HCPCS: 72141

== ENCOUNTER → 2023-03-02 | Outpatient (CLI) | payer OTHER ==
--- NOTE | 2023-03-03 08:59 | MM ---
Reason for Exam: Screening (asymptomatic). Last mammogram was performed 2 year(s) and 1 month(s) ago. Patient History: Menarche at age 12. First Full-Term at age 26. Postmenopausal. Patient used Estrogen for 5 years. Patient used Hormonal Contraceptives for 10 years. Sister had breast cancer, age 65. Mother had breast cancer, age 60. Risk Values: Viviane 5 year model risk: 5.1%. NCI Lifetime model risk: 19.1%. Prior Study Comparison: 07/28/2016 Screening Mammogram, Unknown. 03/29/2019 Bilateral Screening Mammogram, [facility]. 01/28/2021 Bilateral Screening Mammogram, [facility]. Tissue Density: There are scattered fibroglandular densities. Findings: Analyzed By CAD. There is no suspicious group of microcalcifications or new suspicious mass in either breast. Overall Assessment: Negative, BI-RAD 1 Management: Screening Mammogram of both breasts in 1 year. . Patient should continue monthly self-breast exams. A clinical breast exam by your physician is recommended on an annual basis. This exam should not preclude additional follow-up of suspicious palpable abnormalities. Note on Viviane scores and lifetime risk: 1. A Viviane score greater than 3% is considered moderate risk. If this is the case, consider specialist referral to assess eligibility for a risk reducing agent. 2. If overall lifetime risk for the development of breast cancer is 20% or higher, the patient may qualify for future screening with alternating mammogram and breast MRI. Electronically signed and approved by: Abhishek Varghese M.D. Radiologis
== END | disposition home or self-care (01) ==
LOC: RADMAMWWP 12:56
PROVIDERS: ATTEND Family Medicine
DX: Z12.31 Encounter for screening mammogram for malignant neoplasm of breast (principal); Z78.0 Asymptomatic menopausal state; Z80.3 Family history of malignant neoplasm of breast
CPT/HCPCS: 77063; 77067

== ENCOUNTER → 2024-03-08 | Outpatient (CLI) | payer MEDICARE, OTHER ==
[2024-03-08 13:16] LABS: African American GFR (CKD) >90 (>60 ml/min/1.73 sqM); Blood Urea Nitrogen 18 mg/dL (7-17); Non-African American GFR(CKD) >90 (>60 ml/min/1.73 sqM)
--- NOTE | 2024-03-08 15:01 | CT ---
EXAMINATION TYPE: CT chest w con CT DLP: 151.5 mGycm, Automated exposure control for dose reduction was used. DATE OF EXAM: 03/08/2024 1:39 PM COMPARISON: No direct comparisons. CLINICAL INDICATION:Female, 63 years old with history of R91.1 SOLITARY PULMONARY NODULE;N95.0 Post m rogelio bl; PHH, pulmonary nodule TECHNIQUE: Multiple axial images were obtained through the chest following the administration of 100 cc of Isovue 300. . Coronal and sagittal reformats reviewed. FINDINGS: LUNGS/ PLEURA: No pleural effusion or pneumothorax. No focal consolidation. Dependent bilateral lower lobe subpleural reticulation with traction bronchiectasis. Left midlung calcified granuloma measurin g up to 5 mm. AIRWAY: Patent and unremarkable.. HEART: Size within normal limits. No pericardial effusion. Small LAD coronary calcifications. MEDIASTINUM: No evidence of adenopathy. VASCULATURE: No aortic aneurysm. MUSCULOSKELETAL: No acute osseous abnormalities SOFT TISSUES/LYMPH NODES: Unremarkable. LOWER NECK: No significant findings. UPPER ABDOMEN: Gallbladder is surgically absent with expected extra hepatic biliary ductal dilatation . Tiny paraesophageal hernia suggested. IMPRESSION: 1. No acute thoracic process. 2. Dependent bilateral lower lobe subpleural reticular opacities with traction bronchiectasis consist ent with pulmonary fibrotic changes. 3. Left lower lobe 5 mm calcified granuloma. [facility], , 03/08/2024 2:58 PM
--- NOTE | 2024-03-08 15:32 | US ---
EXAMINATION TYPE: US pelvis complete transvag DATE OF EXAM: 03/08/2024 COMPARISON: 10/23/21 CLINICAL INDICATION: Female, 63 years old with history of N95.0 POST MENOPAUSAL BLEEDING; PMB. TECHNIQUE: Transabdominal grayscale sonographic images of the pelvis were acquired. Transvaginal s onographic images were medically necessary to better assess the following anatomy: Ovaries FINDINGS: Date of LMP: menopause since age 36 EXAM MEASUREMENTS: Uterus: 6.4 x 3.4 x 2.1 cm Endometrial Stripe: 0.4 cm Right Ovary: not seen Left Ovary: not seen 1. Uterus: Anteverted wnl 2. Endometrium: wnl 3. Right Ovary: Obscured by overlying bowel gas 4. Left Ovary: Obscured by overlying bowel gas 5. Bilateral Adnexa: excessive peristalsing bowel seen 6. Posterior cul-de-sac: wnl IMPRESSION: Endometrium within normal limits for thickness. No evidence for acute process. [facility], , 03/08/2024 3:29 PM
== END | disposition home or self-care (01) ==
LOC: RADCTMAIN 12:25
PROVIDERS: ATTEND Family Medicine
CPT/HCPCS: 36415; 71260; 76830; 76856; 82565; 84520

== ENCOUNTER → 2024-03-14 | Outpatient (CLI) | payer MEDICARE, OTHER ==
--- NOTE | 2024-03-19 18:55 | MM ---
Reason for Exam: Screening (asymptomatic). Last mammogram was performed 1 year(s) and 1 month(s) ago. Patient History: Menarche at age 12. First Full-Term at age 26. Postmenopausal. Patient used Estrogen for 5 years. Patient used Hormonal Contraceptives for 10 years. Maternal cousin had breast cancer, age 50. Maternal cousin had breast cancer, age 50. Sister had breast cancer, age 65. Mother had breast cancer, age 60. Risk Values: Viviane 5 year model risk: 5.2%. NCI Lifetime model risk: 18.6%. Prior Study Comparison: 03/29/2019 Bilateral Screening Mammogram, [facility]. 01/28/2021 Bilateral Screening Mammogram, [facility]. 03/02/2023 Bilateral MG 3D screening mammo w/cad, [facility]. Tissue Density: There are scattered areas of fibroglandular density. Findings: Analyzed By CAD. The pattern is symmetrical. Couple punctate calcifications are present. Vascular calcifications within the left breast. No suspicious groups of microcalcifications, spiculated or lobular masses, architectural distortion or other secondary signs of malignancy are mammographically apparent. Overall Assessment: Benign, BI-RAD 2 Management: Screening Mammogram of both breasts in 1 year. A negative mammogram report should not preclude additional follow up of suspicious palpable abnormalities. Patient should continue monthly self breast exam. A clinical breast exam by your physician is recommended on an annual basis and results should be correlated with mammographic findings. Note on Viviane scores and lifetime risk: 1. A Viviane score greater than 3% is considered moderate risk. If this is the case, consider specialist referral to assess eligibility for a risk reducing agent. 2. If overall lifetime risk for the development of breast cancer is 20% or higher, the patient may qualify for future screening with alternating mammogram and breast MRI. [facility], , 03/19/2024 6:52 PM. Electronically signed and approved by: Sina Goldberg D.O. Radiologis
== END | disposition home or self-care (01) ==
LOC: RADMAMWWP 07:38
PROVIDERS: ATTEND Family Medicine
DX: Z12.31 Encounter for screening mammogram for malignant neoplasm of breast (principal); Z78.0 Asymptomatic menopausal state; Z80.3 Family history of malignant neoplasm of breast; R92.323 Mammographic fibroglandular density, bilateral breasts
CPT/HCPCS: 77063; 77067

== ENCOUNTER → 2024-06-12 | Outpatient (CLI) | payer MEDICARE, OTHER ==
--- NOTE | 2024-06-12 08:24 | US ---
EXAMINATION TYPE: US carotid duplex BILAT DATE OF EXAM: 06/12/2024 COMPARISON: NONE CLINICAL INDICATION: Female, 63 years old with history of H539 VISUAL DISTURBANCE; TECHNIQUE: Grayscale, color Doppler and spectral Doppler evaluation of the bilateral carotid systems and vertebral arteries. Indirect Doppler criteria was utilized. FINDINGS: EXAM MEASUREMENTS: RIGHT: Peak Systolic Velocity (PSV) cm/sec ----- Right CCA: 75.6 ----- Right ICA: 88.6 ----- Right ECA: 91.9 ICA/CCA ratio: 1.2 RIGHT: End Diastole cm/sec ----- Right CCA: 21.5 ----- Right ICA: 39.1 ----- Right ECA: 12.8 LEFT: Peak Systolic Velocity (PSV) cm/sec ----- Left CCA: 87.5 ----- Left ICA: 114.7 ----- Left ECA: 103.9 ICA/CCA ratio: 1.3 LEFT: End Diastole cm/sec ----- Left CCA: 34.7 ----- Left ICA: 53.8 ----- Left ECA: 16.8 VERTEBRALS (direction of flow): Right Vertebral: Antegrade Left Vertebral: Antegrade Rhythm: Normal Minimal atherosclerotic plaque at the right carotid bulb. Mild atherosclerotic plaque at the left car otid bulb. IMPRESSION: Right: No hemodynamically significant stenosis. Left: No hemodynamically significant stenosis. Criteria for Assigning % of Stenosis / Diameter reduction (Estimation based on the indirect measurements of the internal carotid artery velocities (ICA PSV). 1. Normal (no stenosis)=ICA PSV < 125 cm/s: ratio < 2.0: ICA EDV<40 cm/s. 2. Less than 50% stenosis=ICA PSV < 125 cm/s: ratio < 2.0: ICA EDV<40 cm/s. 3. 50 to 69% stenosis=ICA PSV of 125 to 230 cm/s: ration 2.0 ? 4.0: ICA EDV 40-100 cm/s. 4. Greater than 70% stenosis to near occlusion= ICA PSV > 230 cm/s: ratio > 4.0: ICA EDV > 100 cm/s. 5. Near occlusion= ICA PSV velocities may be low or undetectable: variable ratio and ICA EDV. 6. Total occlusion=unable to detect flow. [facility], , 06/12/2024 8:22 AM
--- NOTE | 2024-06-12 08:26 | US ---
EXAMINATION TYPE: US abdomen complete DATE OF EXAM: 06/12/2024 COMPARISON: CT 2021 CLINICAL INDICATION: Female, 63 years old with history of R1013 EPIGASTRIC PAIN; TECHNIQUE: Grayscale and color Doppler imaging of the abdomen was performed. FINDINGS: EXAM MEASUREMENTS: Liver Length: 13.5 cm CBD: 0.3 cm Spleen: 7.5 cm Right Kidney: 9.4 x 4.8 x 4.3 cm Left Kidney: 9.4 x 5.7 x 4.9 cm Pancreas: visualized portions wnl, limited by overlying midline bowel gas Liver: wnl Gallbladder: surgically absent Evidence for sonographic Loja's sign: no CBD: wnl Spleen: wnl Right Kidney: wnl Left Kidney: wnl Upper IVC: wnl Abd Aorta: wnl Scanned left lower abdomen at patient's area of pain - appears wnl The liver is homogenous. The intrahepatic portion of the IVC and proximal abdominal aorta are within normal limits. There is no evidence of cholelithiasis. Common bile duct is unremarkable. The visu alized portions of the pancreas are homogenous. The spleen is unremarkable. Kidneys are symmetric a nd free of hydronephrosis. No renal lesions are seen. No ultrasound evidence for abnormality within the left lower abdomen and patient's region of pain. IMPRESSION: No ultrasound evidence for acute process. [facility], , 06/12/2024 8:23 AM
== END | disposition home or self-care (01) ==
LOC: RADUSWWP 07:13
PROVIDERS: ATTEND Family Medicine
DX: R10.13 Epigastric pain (principal); H53.9 Unspecified visual disturbance
CPT/HCPCS: 76700; 93880

== ENCOUNTER → 2024-07-05 | Outpatient (CLI) | payer MEDICARE, OTHER ==
[2024-07-05 13:19] LABS: African American GFR (CKD) >90 (>60 ml/min/1.73 sqM); Blood Urea Nitrogen 19 mg/dL (7-17); Non-African American GFR(CKD) >90 (>60 ml/min/1.73 sqM)
--- NOTE | 2024-07-05 15:14 | CT ---
EXAMINATION TYPE: CT abdomen pelvis w con DATE OF EXAM: 07/05/2024 COMPARISON: 07/30/2021 CLINICAL INDICATION: Female, 64 years old with history of R10.9 ABDOMINAL PAIN; PHH, Abdominal pain, reflux. Hx pessay, hiatal hernia. TECHNIQUE: Performed with Oral Contrast and with IV Contrast, patient injected with 100 mL of Isovue 300. CT DLP: 451.[address] CTDI: mGy Automated exposure control for dose reduction was used. FINDINGS: There is a mild focal honeycomb lung in the posterior lower lobes indicating chronic interstitial mario g disease. There is no airspace consolidation. There is a small hiatal hernia. There is surgical absence of the gallbladder. There is no biliary ductal dilatation. There is no focal mass or organomegaly involving the liver, pancreas, spleen or adrenal glands. There is no solid renal mass or hydronephrosis and there is homogeneous contrast enhancement of the r enal parenchyma. The caliber the abdominal aorta is normal is no retroperitoneal adenopathy or hemorr meghan. The bowel loops are normal in caliber and there is no evidence of dilatation or obstruction. No infla mmatory changes are identified in the bowel wall or mesentery. There is no free intraperitoneal air or fluid. No pelvic mass, free fluid, abscess or adenopathy. There is a pessary device unchanged in position. There is a grade 1 anterolisthesis of L4 on L5 with distortion of the L4-5 disc. In combination with moderate thickening of ligamentum flavum and facet hypertrophy there is a moderate spinal stenosis at L4-5. There is a stable prominent Schmorl's node in the superior endplate of L3. IMPRESSION: 1. Chronic lung changes in the posterior lung bases is described. 2. No acute changes within the abdomen or pelvis. 3. Grade 1 anterolisthesis of L4 on L5 and moderate L4-5 spinal stenosis. 4. Stable small hiatal hernia. [facility], , 07/05/2024 3:11 PM
== END | disposition home or self-care (01) ==
LOC: RADCTMAIN 12:36
PROVIDERS: ATTEND Family Medicine
DX: K44.9 Diaphragmatic hernia without obstruction or gangrene (principal); M48.061 Spinal stenosis, lumbar region without neurogenic claudication; M43.16 Spondylolisthesis, lumbar region; R91.8 Other nonspecific abnormal finding of lung field
CPT/HCPCS: 82565; 84520; 74177; 36415; Q9967